=== PATIENT | female | born 1985 | race African-American/Black ===

== ENCOUNTER 2016-05-09 23:37 | Emergency (ER) | payer MEDICARE ==
[~2016-05-09 23:37] MED LIST: CEPH500T PO; ETOD200C31 PO; HYDR5TAB59 PO; METH75TA PO; TYLE325C PO
[2016-05-10] MEDS ORDERED: HYDROCORTISONE INJ 250 MG VIAL (J1720) As Ordered ONE (00:08)
[2016-05-10 00:11] LABS: BASO % 0.4 % (0.0-1.0); EOS # 0.4 K/mm3 (0.0-0.50); EOS % 4.4 % (0.0-3.0); LARGE UNSTAINED CELL # 0.1 K/mm3 (0.0-0.4); LARGE UNSTAINED CELL % 1.4 % (0.0-4.0); LYMPH # 0.9 K/mm3 (1.5-4.5); LYMPH % 9.7 % (24.0-44.0); MEAN CORPUSCULAR HGB CONC 34.9 g/dl (32.0-36.5); MEAN CORPUSCULAR VOLUME 88.9 fl (80.0-96.0); MONO # 0.4 K/mm3 (0.0-0.8); MONO % 4.3 % (0.0-5.0); NEUTROPHILS # 7.4 K/mm3 (1.8-7.7); NEUTROPHILS % 79.8 % (36.0-66.0); PLATELET COUNT, AUTOMATED 274 k/mm3 (150-450); RED CELL DISTRIBUTION WIDTH 12.9 % (11.5-14.5); WHITE BLOOD COUNT 9.2 K/mm3 (4.0-10.0)
[2016-05-10 00:45] LABS: ALBUMIN 4.1 GM/DL (3.2-5.2); ALBUMIN/GLOBULIN RATIO 0.91 (1.00-1.93); ALKALINE PHOSPHATASE 120 U/L (45-117); ALT/SGPT 19 U/L (12-78); AMYLASE 61 U/L (25-115); ANION GAP 11 MEQ/L (8-16); AST/SGOT 22 U/L (15-37); BILIRUBIN,DIRECT 0.3 MG/DL (0.0-0.2); BILIRUBIN,TOTAL 1.4 MG/DL (0.2-1.0); BLOOD UREA NITROGEN 10 MG/DL (7-18); CALCIUM LEVEL 8.8 MG/DL (8.5-10.1); CARBON DIOXIDE LEVEL 23 MEQ/L (21-32); CHLORIDE LEVEL 104 MEQ/L (98-107); CREATININE FOR GFR 1.19 MG/DL (0.55-1.02); GLOMERULAR FILTRATION RATE > 60.0 (>60); GLUCOSE, FASTING 94 MG/DL (70-105); SODIUM LEVEL 138 MEQ/L (136-145); TOTAL PROTEIN 8.6 GM/DL (6.4-8.2)
--- NOTE | 2016-05-10 01:40 | REPUSA ---
CLINICAL HISTORY: Abdominal pain. TECHNIQUE: Realtime sonographic images were obtained in multiple projections. COMMENTS: The liver is of normal size, parenchyma demonstrates normal echogenicity. No discrete hepatic mass is seen. There is no intra or extrahepatic biliary ductal dilatation. CBD measures 2.7mm. The gallbladder is physiologically distended without evidence of calculi. The gallbladder wall is not thickened and there is no pericholecystic fluid. There is no abdominal as cites. The right kidney measures 10.2 x 6.1 x 4.7 cm, free of hydronephrosis. IMPRESSION: Unremarkable study. Thank you for your kind referral of this patient.
[2016-05-10] MEDS ORDERED: METOCLOPRAMIDE INJ 10MG/2ML VIAL (J2765) As Ordered ONE (03:30)
--- NOTE | 2016-05-10 03:59 | EDDOCDS ---
Physician Documentation [facility] Name: Rakel Edwards Age: 30 yrs Sex: Female : 1985 Arrival Date: 05/09/2016 Time: 23:37 Bed 11 Private MD: Fátima Deshpande Disposition: 05/10/16 03:22 Discharged to Home/Self Care. Impression: Noninfective gastroenteritis and colitis, unspecified. - Condition is Stable. - Prescriptions for Reglan 10 mg Oral Tablet - take 1 tablet by ORAL route every 6 hours take 30 minutes before meals and at bedtime; 20 tablet. - Medication Reconciliation, Local Pharmacy Hours form. - Follow up: Fátima Deshpande; When: 1 - 2 days; Reason: Recheck today's complaints. - Problem is new. - Symptoms have improved. Historical: - Allergies: Percocet; - Home Meds: 1. hydrocortisone 15mg Oral tab 2 times per day - PMHx: Asthma; Congenital adrenal hyperplasia; mild cerebral palsy; NA+ deficiency; Seasonal Allergies; - PSHx: vagioplasty; heel cord lengthening; Left foot reconstruction; - Social history: Smoking status: Patient states was never smoker of tobacco. No barriers to communication noted, The patient speaks fluent Belarusian, Speaks appropriately for age. - Family history: Not pertinent. - : The pt / caregiver states he / she is not on anticoagulants. Home medication list is obtained from the patient. - Exposure Risk Screening:: None identified. 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 8 in. (172.72 cm); Pain 8/10; 05/10 03:33 BP 120 / 57; Pulse 93; Resp 20; Temp 98.3(O); Pulse Ox 98% on R/A; Pain 0/10; jmv 03:57 BP 118 / 60; Pulse 103; Resp 18; Pulse Ox 97% ; Pain 0/10; slm 05/09 23:38 Body Mass Index 28.13 (83.91 kg, 172.72 cm) jl MDM: 05/09 23:58 IV Saline Lock ordered. cs11 23:58 NS 0.9% 1000 ml IV at bolus once ordered. cs11 05/10 00:00 CBC with Diff Ordered. EDMS 00:00 MED Profile Ordered. EDMS 00:00 Liver Profile Ordered. EDMS 00:00 Amylase Ordered. EDMS 00:00 Lipase Ordered. EDMS 00:00 Urinalysis Ordered. EDMS 00:00 Urine Culture Ordered. EDMS 00:02 Hydrocortisone (PF) 250 mg IVP once ordered. cs11 00:26 NS 0.9% 1000 ml IV at bolus once ordered. cs11 00:41 CBC with Diff Reviewed. cs11 00:57 MED Profile Reviewed. cs11 00:57 Liver Profile Reviewed. cs11 00:57 Amylase Reviewed. cs11 00:57 Lipase Reviewed. cs11 01:00 Ultrasound Abd Limited Ordered. EDMS 02:01 Financial registration complete. hs2 02:49 [facility] Payment Agreement was scanned into TDX and attached to record. hs2 03:19 Metoclopramide 10 mg IV at 40 mg/hr once over 15 mins ordered. cs11 03:19 Ultrasound Abd Limited Reviewed. cs11 Administered Medications: 00:02 CANCELLED (Other Intervention Used): Dexamethasone 12 mg IV at bolus once cs11 00:12 Drug: Hydrocortisone (PF) 250 mg [hydrocortisone sod succinate (PF) 250 mg/2 mL jmb solution for injection (2 mL)] Route: IVP; Site: left antecubital; 00:13 Drug: NS 0.9% 1000 ml [sodium chloride 0.9 % intravenous solution] Route: IV; Rate: jmb bolus; Site: left antecubital; 01:34 Drug: NS 0.9% 1000 ml [sodium chloride 0.9 % intravenous solution] Route: IV; Rate: jmb bolus; Site: left antecubital; 03:33 Drug: Metoclopramide 10 mg [metoclopramide 5 mg/mL injection solution] {Note: given tm5 IVPB in 50cc NS over 15 minutes.} Route: IV; Rate: 40 mg/hr; Infused Over: 15 mins; Site: left antecubital; 03:55 Follow up: IV Status: Completed infusion sls1 Signatures: Dispatcher [employer] EDSD Rissa Abreu RN RN jo3 Schiff, Craig, DO DO cs11 Bo,Saji,RN RN Mery Velez LPN [employer] slm Leidy Mcdowell, Reg Reg hs2 Sulma Jessica RN sls1 Katelin Bishop RN tm5 The chart was reviewed and I authenticate all verbal orders and agree with the evaluation and treatment provided.Corrections: (The following items were deleted from the chart) 05/09 23:52 23:50 Allergies: No known drug Allergies; jo3 jo3 05/10 00:02 05/09 23:58 Dexamethasone 12 mg IV at bolus once ordered. cs11 cs11 Attachments: 05/10 02:49 [facility] [place] Payment Agreement hs2 MTDD
--- NOTE | 2016-05-10 03:59 | EDDOCDS ---
Nurse's Notes [facility] Name: Rakel Edwards Age: 30 yrs Sex: Female : 1985 Arrival Date: 05/09/2016 Time: 23:37 Bed 11 Private MD: Fátima Deshpande Diagnosis: Noninfective gastroenteritis and colitis, unspecified Presentation: 05/09 23:46 Presenting complaint: Patient states: Vomiting since 1700. No diarrhea. reports that jo3 the two children she baby sits have been sick with stomach bug. Pt reports a sodium deficiency and states she needs Dexamethasone IV when she is vomiting. Adult Sepsis Screening: The patient does not have new or worsening altered mentation. Patient's respiratory rate is less than 22. Systolic blood pressure is greater than 100. Patient has a qSOFA score of 0- Negative Sepsis Screen. Suicide/Homicide risk assessment- the patient denies having any suicidal and/or homicidal ideations and does not present with any other emotional, behavioral or mental health complaints. Status: Patient is not a swimming pool service technician or dependent. Transition of care: patient was not received from another setting of care. 23:46 Acuity: NABIL Level 3 jo3 23:46 Method Of Arrival: Walkin/Carried/Asstd jo3 Triage Assessment: 23:50 General: Appears in no apparent distress, Behavior is appropriate for age, cooperative. jo3 HIV screening NA for this visit Offered previously. Neurological: Level of Consciousness is awake, alert, Oriented to person, place, time. Respiratory: Airway is patent Respiratory effort is even, unlabored. Derm: Skin is pink, warm & dry. 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 hydrocortisone 15mg Oral tab 2 times per day - PMHx: Asthma; Congenital adrenal hyperplasia; mild cerebral palsy; NA+ deficiency; Seasonal Allergies; - PSHx: vagioplasty; heel cord lengthening; Left foot reconstruction; - Social history: Smoking status: Patient states was never smoker of tobacco. No barriers to communication noted, The patient speaks fluent Khmer, Speaks appropriately for age. - Family history: Not pertinent. - : The pt / caregiver states he / she is not on anticoagulants. Home medication list is obtained from the patient. - Exposure Risk Screening:: None identified. Screenin/25 00:04 Screening information is obtained from the patient. Fall risk: No risks identified. jmb Assistance ADL's: requires no assistance with activities of daily living. Abuse/DV Screen: The patient / caregiver reports he/she is: not in a situation that causes fear, pain or injury. Nutritional screening: No deficits noted. home support is adequate. 03:00 Advance Directives: There is no active DNR order. tm5 Assessment: 00:04 General: Appears in no apparent distress, Behavior is appropriate for age, cooperative. jmb Pain: Location: lumbar area, left low back and right low back Pain currently is 2 out of 10 on a pain scale. Neurological: Level of Consciousness is awake, alert, obeys commands, Oriented to person, place, time, Fuel Distribution System Operator are equal bilaterally Speech is normal, Facial symmetry appears normal, Facial symmetry: tongue is midline. Cardiovascular: Capillary refill < 3 seconds Heart tones S1 S2 present Pulses are all present. Rhythm is regular. Respiratory: Airway is patent Respiratory effort is even, unlabored, Respiratory pattern is regular, symmetrical, Breath sounds are clear bilaterally. GI: Abdomen is non- distended Bowel sounds present X 4 quads. Abd is soft X 4 quads. Derm: Skin is normal. Musculoskeletal: Range of motion intact in all extremities. 00:43 General: Appears in no apparent distress, comfortable, Behavior is appropriate for age, jmb cooperative, Patient laying on stretcher, appears comfortable. Patient voices no complaints at this time . Neurological: Level of Consciousness is awake, alert, obeys commands, Oriented to person, place, time. Respiratory: Airway is patent Respiratory effort is even, unlabored, Respiratory pattern is regular, symmetrical. 01:35 General: Appears in no apparent distress, comfortable, Behavior is appropriate for age, jmb cooperative, Patient laying on stretcher with lights off. Patient denies discomfort at this time. . Neurological: Level of Consciousness is awake, alert, obeys commands, Oriented to person, place, time. Respiratory: Airway is patent Respiratory effort is even, unlabored, Respiratory pattern is regular, symmetrical. 02:16 General: Appears in no apparent distress, comfortable, Behavior is appropriate for age, jmb cooperative, Patient laying on stretcher, appears comfortable. NO voiced complaints at this time. . Neurological: Level of Consciousness is awake, alert, obeys commands, Oriented to person, place, time. Respiratory: Airway is patent Respiratory effort is even, unlabored, Respiratory pattern is regular, symmetrical. 02:51 General: Appears in no apparent distress, comfortable, Behavior is appropriate for age, jmb cooperative, Patient laying in bed, no voiced complaints at this time. . Neurological: Level of Consciousness is awake, alert, obeys commands, Oriented to person, place, time. Respiratory: Airway is patent Respiratory effort is even, unlabored, Respiratory pattern is regular, symmetrical. 03:57 Reassessment: Patient appears in no apparent distress at this time. [facility] Vital Signs: 05/09 23:38 BP 127 / 63; Pulse 117; Resp 18; Temp 98.3; Pulse Ox 99% ; Weight 83.91 kg; Height 5 [facility] ft. 8 in. (172.72 cm); Pain 8/10; 05/10 03:33 BP 120 / 57; Pulse 93; Resp 20; Temp 98.3(O); Pulse Ox 98% on R/A; Pain 0/10; [facility] 03:57 BP 118 / 60; Pulse 103; Resp 18; Pulse Ox 97% ; Pain 0/10; [facility] 05/09 23:38 Body Mass Index 28.13 (83.91 kg, 172.72 cm) [facility] Vitals: 05/09 23:38 Log In Time: May 09, 2016 at 23:38. [facility] ED Course: 23:38 Patient visited by Belgica Harman, Carpenter Helper. [facility] 23:38 Fátima Deshpande is Private Physician. [facility] 23:38 Patient moved to Waiting jl 23:39 Patient moved to Pre RCE jl 23:49 Triage Initiated jo3 23:52 Patient moved to 11 jo3 23:56 Mauro Cristina DO is Attending Physician. cs11 23:56 Patient visited by Mauro Cristina DO. [facility] 05/10 00:04 The patient / caregiver is instructed regarding the plan of care and ED course. natacha 00:04 Lipase Sent. joeyb 00:04 Amylase Sent. joeyb 00:04 Liver Profile Sent. joeyb 00:04 MED Profile Sent. natacha 00:04 CBC with Diff Sent. natacha 00:04 Inserted saline lock: 20 gauge in left antecubital area and blood collected. The [facility] patient tolerated the procedure well. Labs drawn. (by ED staff). Sent per order to lab. 00:06 Patient visited by Saji Bo RN. jmb 00:43 Patient visited by Saji Bo RN. jmb 01:36 Patient visited by Saji Bo RN. jmb 01:57 Ultrasound Abd Limited Returned. EDMS 02:17 Patient visited by Saji Bo RN. jmb 02:49 [facility] Payment Agreement was scanned into [employer] and attached to record. hs2 02:52 Patient visited by Saji Bo RN. jmb 03:01 Report received from Connor Valadez RN, assumed care of pt at this time. tm5 03:22 Fátima Deshpande is Referral Physician. cs11 03:34 Patient visited by Ravi Keys PCA. jmv 03:55 Patient visited by Sulma Jessica RN. sls1 03:55 Discontinued lock intact, bleeding controlled, pressure dressing applied, No sls1 redness/swelling at site. No procedures done that require assistance. 03:58 Patient visited by Mery Churchill LPN. slm Administered Medications: 00:02 CANCELLED (Other Intervention Used): Dexamethasone 12 mg IV at bolus once cs11 00:12 Drug: Hydrocortisone (PF) 250 mg [hydrocortisone sod succinate (PF) 250 mg/2 mL jmb solution for injection (2 mL)] Route: IVP; Site: left antecubital; 00:13 Drug: NS 0.9% 1000 ml [sodium chloride 0.9 % intravenous solution] Route: IV; Rate: jmb bolus; Site: left antecubital; 01:34 Drug: NS 0.9% 1000 ml [sodium chloride 0.9 % intravenous solution] Route: IV; Rate: jmb bolus; Site: left antecubital; 03:33 Drug: Metoclopramide 10 mg [metoclopramide 5 mg/mL injection solution] {Note: given tm5 IVPB in 50cc NS over 15 minutes.} Route: IV; Rate: 40 mg/hr; Infused Over: 15 mins; Site: left antecubital; 03:55 Follow up: IV Status: Completed infusion sls1 Order Results: Lab Order: CBC with Diff; SPEC'M 05/10/16 00:02 Test: WHITE BLOOD COUNT; Value: 9.2; Range: 4.0-10.0; Units: K/mm3; Status: F Test: RED BLOOD COUNT; Value: 6.03; Range: 4.00-5.40; Abnormal: Above high normal; Units: M/mm3; Status: F Test: HEMOGLOBIN; Value: 18.7; Range: 12.0-16.0; Abnormal: Above high normal; Units: g/dl; Status: F Test: HEMATOCRIT; Value: 53.6; Range: 36.0-47.0; Abnormal: Above high normal; Units: %; Status: F Test: MEAN CORPUSCULAR VOLUME; Value: 88.9; Range: 80.0-96.0; Units: fl; Status: F Test: MEAN CORPUSCULAR HEMOGLOBIN; Value: 31.0; Range: 27.0-33.0; Units: pg; Status: F Test: MEAN CORPUSCULAR HGB CONC; Value: 34.9; Range: 32.0-36.5; Units: g/dl; Status: F Test: RED CELL DISTRIBUTION WIDTH; Value: 12.9; Range: 11.5-14.5; Units: %; Status: F Test: PLATELET COUNT, AUTOMATED; Value: 274; Range: 150-450; Units: k/mm3; Status: F Test: NEUTROPHILS %; Value: 79.8; Range: 36.0-66.0; Abnormal: Above high normal; Units: %; Status: F Test: LYMPH %; Value: 9.7; Range: 24.0-44.0; Abnormal: Below low normal; Units: %; Status: F Test: MONO %; Value: 4.3; Range: 0.0-5.0; Units: %; Status: F Test: EOS %; Value: 4.4; Range: 0.0-3.0; Abnormal: Above high normal; Units: %; Status: F Test: BASO %; Value: 0.4; Range: 0.0-1.0; Units: %; Status: F Test: LARGE UNSTAINED CELL %; Value: 1.4; Range: 0.0-4.0; Units: %; Status: F Test: NEUTROPHILS #; Value: 7.4; Range: 1.8-7.7; Units: K/mm3; Status: F Test: LYMPH #; Value: 0.9; Range: 1.5-4.5; Abnormal: Below low normal; Units: K/mm3; Status: F Test: MONO #; Value: 0.4; Range: 0.0-0.8; Units: K/mm3; Status: F Test: EOS #; Value: 0.4; Range: 0.0-0.50; Units: K/mm3; Status: F Test: BASO #; Value: 0.0; Range: 0.0-0.2; Units: K/mm3; Status: F Test: LARGE UNSTAINED CELL #; Value: 0.1; Range: 0.0-0.4; Units: K/mm3; Status: F Lab Order: MED Profile; SPECM 05/10/16 00:02 Test: GLUCOSE, FASTING; Value: 94; Range: 70-105; Units: MG/DL; Status: F Test: BLOOD UREA NITROGEN; Value: 10; Range: 7-18; Units: MG/DL; Status: F Test: CREATININE FOR GFR; Value: 1.19; Range: 0.55-1.02; Abnormal: Above high normal; Units: MG/DL; Status: F Test: GLOMERULAR FILTRATION RATE; Value: > 60.0; Range: >60; Status: F Test: SODIUM LEVEL; Value: 138; Range: 136-145; Units: MEQ/L; Status: F Test: POTASSIUM SERUM; Value: 4.0; Range: 3.5-5.1; Units: MEQ/L; Status: F Test: CHLORIDE LEVEL; Value: 104; Range: 98-107; Units: MEQ/L; Status: F Test: CARBON DIOXIDE LEVEL; Value: 23; Range: 21-32; Units: MEQ/L; Status: F Test: ANION GAP; Value: 11; Range: 8-16; Units: MEQ/L; Status: F Test: CALCIUM LEVEL; Value: 8.8; Range: 8.5-10.1; Units: MG/DL; Status: F Test Note: ; Units are mL/min/1.73 m2 Chronic Kidney Disease Staging per NKF: Stage I & II GFR >=60 Normal to Mildly Decreased Stage III GFR 30-59 Moderately Decreased Stage IV GFR 15-29 Severely Decreased Stage V GFR <15 Very Little GFR Left ESRD GFR <15 on CHAR FILTER OPERATOR HELPER Lab Order: Liver Profile; [facility] 05/10/16 00:02 Test: AST/SGOT; Value: 22; Range: 15-37; Units: U/L; Status: F Test: ALT/SGPT; Value: 19; Range: 12-78; Units: U/L; Status: F Test: ALKALINE PHOSPHATASE; Value: 120; Range: 45-117; Abnormal: Above high normal; Units: U/L; Status: F Test: BILIRUBIN,TOTAL; Value: 1.4; Range: 0.2-1.0; Abnormal: Above high normal; Units: MG/DL; Status: F Test: BILIRUBIN,DIRECT; Value: 0.3; Range: 0.0-0.2; Abnormal: Above high normal; Units: MG/DL; Status: F Test: TOTAL PROTEIN; Value: 8.6; Range: 6.4-8.2; Abnormal: Above high normal; Units: GM/DL; Status: F Test: ALBUMIN; Value: 4.1; Range: 3.2-5.2; Units: GM/DL; Status: F Test: ALBUMIN/GLOBULIN RATIO; Value: 0.91; Range: 1.00-1.93; Abnormal: Below low normal; Status: F Lab Order: Amylase; [facility] 05/10/16 00:02 Test: AMYLASE; Value: 61; Range: 25-115; Units: U/L; Status: F Lab Order: Lipase; [facility] 05/10/16 00:02 Test: LIPASE; Value: 105; Range: 73-393; Units: U/L; Status: F Lab Order: Urinalysis; [facility] 05/10/16 00:02 Test: APPEARANCE, URINE; Value: CLEAR; Range: CLEAR; Status: F Test: COLOR, URINE; Value: YELLOW; Range: YELLOW; Status: F Test: PH,URINE; Value: 7.0; Range: 5.0-9.0; Units: UNITS; Status: F Test: SPECIFIC GRAVITY URINE AUTO; Value: 1.011; Range: 1.002-1.035; Status: F Test: PROTEIN, URINE AUTO; Value: NEGATIVE; Range: NEGATIVE; Units: mg/dL; Status: F Test: GLUCOSE, URINE (UA) AUTO; Value: NEGATIVE; Range: NEGATIVE; Units: mg/dL; Status: F Test: KETONE, URINE AUTO; Value: TRACE; Range: NEGATIVE; Abnormal: Above high normal; Units: mg/dL; Status: F Test: UROBILINOGEN, URINE AUTO; Value: 0.2; Range: 0.0-2.0; Units: mg/dL; Status: F Test: BILIRUBIN, URINE AUTO; Value: NEGATIVE; Range: NEGATIVE; Status: F Test: NITRITE, URINE AUTO; Value: NEGATIVE; Range: NEGATIVE; Status: F Test: LEUKOCYTE ESTERASE, URINE AUTO; Value: TRACE; Range: NEGATIVE; Abnormal: Above high normal; Status: F Test: BLOOD, URINE BLOOD; Value: NEGATIVE; Range: NEGATIVE; Status: F Test: WBC, URINE AUTO; Value: 1; Range: 0-3; Units: /HPF; Status: F Test: RBC, URINE AUTO; Value: 2; Range: 0-3; Units: /HPF; Status: F Test: BACTERIA, URINE AUTO; Value: NEGATIVE; Range: NEGATIVE; Status: F Test: SQUAMOUS EPITHELIAL CELL UR AU; Value: 0; Range: 0-6; Units: /HPF; Status: F Test: MUCUS, URINE; Value: SMALL; Range: NEGATIVE; Status: F Test: HYALINE CAST, URINE AUTO; Value: 0; Range: 0-1; Units: /LPF; Status: F Radiology Order: Ultrasound Abd Limited Test: Ultrasound Abd Limited REASON FOR EXAMINATION: Biliary Colic; ; CLINICAL HISTORY: Abdominal pain.; TECHNIQUE: Realtime sonographic images were obtained in multiple projections.; COMMENTS:; The liver is of normal size, parenchyma demonstrates normal echogenicity. No discrete hepatic mass is; seen.; There is no intra or extrahepatic biliary ductal dilatation.; CBD measures 2.7mm.; The gallbladder is physiologically distended without evidence of calculi.; The gallbladder wall is not thickened and there is no pericholecystic fluid. There is no abdominal as; cites.; The right kidney measures 10.2 x 6.1 x 4.7 cm, free of hydronephrosis.; IMPRESSION:; Unremarkable study.; Thank you for your kind referral of this patient.; ; Outcome: 03:22 Discharge ordered by Provider. cs11 03:58 Discharge Assessment: Patient awake, alert and oriented x 3. No cognitive and/or slm functional deficits noted. Patient verbalized understanding of disposition instructions. patient administered narcotics - no. The following High Risk Discharge criteria are identified: None. Discharged to home ambulatory. Condition: good Condition: improved. Discharge instructions given to patient, Instructed on discharge instructions, follow up and referral plans. medication usage, Demonstrated understanding of instructions, medications, Pt was receptive of discharge instructions/ teaching. Prescriptions given X 1. Ultrasound Study completed. Property :Personal belongings accompany Pt. 03:59 Patient left the ED. slm Signatures: Dispatcher [employer] EDMS Rissa Abreu,RN RN Sulma Ludwig RN RN sls1 Mauro Cristina, DO cs11 Saji Bo,RN RN jmb Mery Churchill,INTEGRATION TECHNICIAN INTEGRATION TECHNICIAN slm Belgica Harman, Carpenter Helper Unit jlm Leidy Mcdowell, Reg Reg hs2 Ravi Keys, BAR SUPERVISOR BAR SUPERVISOR Katelin Hyatt,RN RN tm5 Corrections: (The following items were deleted from the chart) 05/09 23:52 23:50 Allergies: No known drug Allergies; moise [email or web address] MTDD
--- NOTE | 2016-05-12 04:59 | EDDOCDS ---
Nurse's Notes [facility] Name: Rakel Edwards Age: 30 yrs Sex: Female : 1985 Arrival Date: 05/09/2016 Time: 23:37 Bed 11 Private MD: Fátima Deshpande Diagnosis: Noninfective gastroenteritis and colitis, unspecified Presentation: 05/09 23:46 Presenting complaint: Patient states: Vomiting since 1700. No diarrhea. reports that jo3 the two children she baby sits have been sick with stomach bug. Pt reports a sodium deficiency and states she needs Dexamethasone IV when she is vomiting. Adult Sepsis Screening: The patient does not have new or worsening altered mentation. Patient's respiratory rate is less than 22. Systolic blood pressure is greater than 100. Patient has a qSOFA score of 0- Negative Sepsis Screen. Suicide/Homicide risk assessment- the patient denies having any suicidal and/or homicidal ideations and does not present with any other emotional, behavioral or mental health complaints. Status: Patient is not a vehicle service agent or dependent. Transition of care: patient was not received from another setting of care. 23:46 Acuity: NABIL Level 3 jo3 23:46 Method Of Arrival: Walkin/Carried/Asstd jo3 Triage Assessment: 23:50 General: Appears in no apparent distress, Behavior is appropriate for age, cooperative. jo3 HIV screening NA for this visit Offered previously. Neurological: Level of Consciousness is awake, alert, Oriented to person, place, time. Respiratory: Airway is patent Respiratory effort is even, unlabored. Derm: Skin is pink, warm & dry. 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 hydrocortisone 15mg Oral tab 2 times per day - PMHx: Asthma; Congenital adrenal hyperplasia; mild cerebral palsy; NA+ deficiency; Seasonal Allergies; - PSHx: vagioplasty; heel cord lengthening; Left foot reconstruction; - Social history: Smoking status: Patient states was never smoker of tobacco. No barriers to communication noted, The patient speaks fluent Slovenian, Speaks appropriately for age. - Family history: Not pertinent. - : The pt / caregiver states he / she is not on anticoagulants. Home medication list is obtained from the patient. - Exposure Risk Screening:: None identified. Screenin/25 00:04 Screening information is obtained from the patient. Fall risk: No risks identified. jmb Assistance ADL's: requires no assistance with activities of daily living. Abuse/DV Screen: The patient / caregiver reports he/she is: not in a situation that causes fear, pain or injury. Nutritional screening: No deficits noted. home support is adequate. 03:00 Advance Directives: There is no active DNR order. tm5 Assessment: 00:04 General: Appears in no apparent distress, Behavior is appropriate for age, cooperative. jmb Pain: Location: lumbar area, left low back and right low back Pain currently is 2 out of 10 on a pain scale. Neurological: Level of Consciousness is awake, alert, obeys commands, Oriented to person, place, time, Blacktop Spreader are equal bilaterally Speech is normal, Facial symmetry appears normal, Facial symmetry: tongue is midline. Cardiovascular: Capillary refill < 3 seconds Heart tones S1 S2 present Pulses are all present. Rhythm is regular. Respiratory: Airway is patent Respiratory effort is even, unlabored, Respiratory pattern is regular, symmetrical, Breath sounds are clear bilaterally. GI: Abdomen is non- distended Bowel sounds present X 4 quads. Abd is soft X 4 quads. Derm: Skin is normal. Musculoskeletal: Range of motion intact in all extremities. 00:43 General: Appears in no apparent distress, comfortable, Behavior is appropriate for age, jmb cooperative, Patient laying on stretcher, appears comfortable. Patient voices no complaints at this time . Neurological: Level of Consciousness is awake, alert, obeys commands, Oriented to person, place, time. Respiratory: Airway is patent Respiratory effort is even, unlabored, Respiratory pattern is regular, symmetrical. 01:35 General: Appears in no apparent distress, comfortable, Behavior is appropriate for age, jmb cooperative, Patient laying on stretcher with lights off. Patient denies discomfort at this time. . Neurological: Level of Consciousness is awake, alert, obeys commands, Oriented to person, place, time. Respiratory: Airway is patent Respiratory effort is even, unlabored, Respiratory pattern is regular, symmetrical. 02:16 General: Appears in no apparent distress, comfortable, Behavior is appropriate for age, jmb cooperative, Patient laying on stretcher, appears comfortable. NO voiced complaints at this time. . Neurological: Level of Consciousness is awake, alert, obeys commands, Oriented to person, place, time. Respiratory: Airway is patent Respiratory effort is even, unlabored, Respiratory pattern is regular, symmetrical. 02:51 General: Appears in no apparent distress, comfortable, Behavior is appropriate for age, jmb cooperative, Patient laying in bed, no voiced complaints at this time. . Neurological: Level of Consciousness is awake, alert, obeys commands, Oriented to person, place, time. Respiratory: Airway is patent Respiratory effort is even, unlabored, Respiratory pattern is regular, symmetrical. 03:57 Reassessment: Patient appears in no apparent distress at this time. [facility] Vital Signs: 05/09 23:38 BP 127 / 63; Pulse 117; Resp 18; Temp 98.3; Pulse Ox 99% ; Weight 83.91 kg; Height 5 [facility] ft. 8 in. (172.72 cm); Pain 8/10; 05/10 03:33 BP 120 / 57; Pulse 93; Resp 20; Temp 98.3(O); Pulse Ox 98% on R/A; Pain 0/10; [facility] 03:57 BP 118 / 60; Pulse 103; Resp 18; Pulse Ox 97% ; Pain 0/10; [facility] 05/09 23:38 Body Mass Index 28.13 (83.91 kg, 172.72 cm) [facility] Vitals: 05/09 23:38 Log In Time: May 09, 2016 at 23:38. [facility] ED Course: 23:38 Patient visited by Belgica Harman, Consolidation Accountant. [facility] 23:38 Fátima Deshpande is Private Physician. [facility] 23:38 Patient moved to Waiting jl 23:39 Patient moved to Pre RCE jl 23:49 Triage Initiated jo3 23:52 Patient moved to 11 jo3 23:56 Mauro Cristina DO is Attending Physician. cs11 23:56 Patient visited by Mauro Cristina DO. [facility] 05/10 00:04 The patient / caregiver is instructed regarding the plan of care and ED course. natacha 00:04 Lipase Sent. joeyb 00:04 Amylase Sent. joeyb 00:04 Liver Profile Sent. joeyb 00:04 MED Profile Sent. natacha 00:04 CBC with Diff Sent. natacha 00:04 Inserted saline lock: 20 gauge in left antecubital area and blood collected. The [facility] patient tolerated the procedure well. Labs drawn. (by ED staff). Sent per order to lab. 00:06 Patient visited by Saji Bo RN. jmb 00:43 Patient visited by Saji Bo RN. jmb 01:36 Patient visited by Saji Bo RN. jmb 01:57 Ultrasound Abd Limited Returned. EDMS 02:17 Patient visited by Saji Bo RN. jmb 02:49 [facility] Payment Agreement was scanned into [employer] and attached to record. hs2 02:52 Patient visited by Saji Bo RN. jmb 03:01 Report received from Connor Valadez RN, assumed care of pt at this time. tm5 03:22 Fátima Deshpande is Referral Physician. cs11 03:34 Patient visited by Ravi Keys PCA. jmv 03:55 Patient visited by Sulma Jessica RN. sls1 03:55 Discontinued lock intact, bleeding controlled, pressure dressing applied, No sls1 redness/swelling at site. No procedures done that require assistance. 03:58 Patient visited by Mery Churchill LPN. slm 08:28 T-Sheet-- Draft Copy was scanned into [employer] and attached to record. seh Administered Medications: 00:02 CANCELLED (Other Intervention Used): Dexamethasone 12 mg IV at bolus once cs11 00:12 Drug: Hydrocortisone (PF) 250 mg [hydrocortisone sod succinate (PF) 250 mg/2 mL jmb solution for injection (2 mL)] Route: IVP; Site: left antecubital; 00:13 Drug: NS 0.9% 1000 ml [sodium chloride 0.9 % intravenous solution] Route: IV; Rate: jmb bolus; Site: left antecubital; 01:34 Drug: NS 0.9% 1000 ml [sodium chloride 0.9 % intravenous solution] Route: IV; Rate: jmb bolus; Site: left antecubital; 03:33 Drug: Metoclopramide 10 mg [metoclopramide 5 mg/mL injection solution] {Note: given tm5 IVPB in 50cc NS over 15 minutes.} Route: IV; Rate: 40 mg/hr; Infused Over: 15 mins; Site: left antecubital; 03:55 Follow up: IV Status: Completed infusion sls1 Order Results: Lab Order: CBC with Diff; SPEC'M 05/10/16 00:02 Test: WHITE BLOOD COUNT; Value: 9.2; Range: 4.0-10.0; Units: K/mm3; Status: F Test: RED BLOOD COUNT; Value: 6.03; Range: 4.00-5.40; Abnormal: Above high normal; Units: M/mm3; Status: F Test: HEMOGLOBIN; Value: 18.7; Range: 12.0-16.0; Abnormal: Above high normal; Units: g/dl; Status: F Test: HEMATOCRIT; Value: 53.6; Range: 36.0-47.0; Abnormal: Above high normal; Units: %; Status: F Test: MEAN CORPUSCULAR VOLUME; Value: 88.9; Range: 80.0-96.0; Units: fl; Status: F Test: MEAN CORPUSCULAR HEMOGLOBIN; Value: 31.0; Range: 27.0-33.0; Units: pg; Status: F Test: MEAN CORPUSCULAR HGB CONC; Value: 34.9; Range: 32.0-36.5; Units: g/dl; Status: F Test: RED CELL DISTRIBUTION WIDTH; Value: 12.9; Range: 11.5-14.5; Units: %; Status: F Test: PLATELET COUNT, AUTOMATED; Value: 274; Range: 150-450; Units: k/mm3; Status: F Test: NEUTROPHILS %; Value: 79.8; Range: 36.0-66.0; Abnormal: Above high normal; Units: %; Status: F Test: LYMPH %; Value: 9.7; Range: 24.0-44.0; Abnormal: Below low normal; Units: %; Status: F Test: MONO %; Value: 4.3; Range: 0.0-5.0; Units: %; Status: F Test: EOS %; Value: 4.4; Range: 0.0-3.0; Abnormal: Above high normal; Units: %; Status: F Test: BASO %; Value: 0.4; Range: 0.0-1.0; Units: %; Status: F Test: LARGE UNSTAINED CELL %; Value: 1.4; Range: 0.0-4.0; Units: %; Status: F Test: NEUTROPHILS #; Value: 7.4; Range: 1.8-7.7; Units: K/mm3; Status: F Test: LYMPH #; Value: 0.9; Range: 1.5-4.5; Abnormal: Below low normal; Units: K/mm3; Status: F Test: MONO #; Value: 0.4; Range: 0.0-0.8; Units: K/mm3; Status: F Test: EOS #; Value: 0.4; Range: 0.0-0.50; Units: K/mm3; Status: F Test: BASO #; Value: 0.0; Range: 0.0-0.2; Units: K/mm3; Status: F Test: LARGE UNSTAINED CELL #; Value: 0.1; Range: 0.0-0.4; Units: K/mm3; Status: F Lab Order: MED Profile; SPEC'M 05/10/16 00:02 Test: GLUCOSE, FASTING; Value: 94; Range: 70-105; Units: MG/DL; Status: F Test: BLOOD UREA NITROGEN; Value: 10; Range: 7-18; Units: MG/DL; Status: F Test: CREATININE FOR GFR; Value: 1.19; Range: 0.55-1.02; Abnormal: Above high normal; Units: MG/DL; Status: F Test: GLOMERULAR FILTRATION RATE; Value: > 60.0; Range: >60; Status: F Test: SODIUM LEVEL; Value: 138; Range: 136-145; Units: MEQ/L; Status: F Test: POTASSIUM SERUM; Value: 4.0; Range: 3.5-5.1; Units: MEQ/L; Status: F Test: CHLORIDE LEVEL; Value: 104; Range: 98-107; Units: MEQ/L; Status: F Test: CARBON DIOXIDE LEVEL; Value: 23; Range: 21-32; Units: MEQ/L; Status: F Test: ANION GAP; Value: 11; Range: 8-16; Units: MEQ/L; Status: F Test: CALCIUM LEVEL; Value: 8.8; Range: 8.5-10.1; Units: MG/DL; Status: F Test Note: ; Units are mL/min/1.73 m2 Chronic Kidney Disease Staging per NKF: Stage I & II GFR >=60 Normal to Mildly Decreased Stage III GFR 30-59 Moderately Decreased Stage IV GFR 15-29 Severely Decreased Stage V GFR <15 Very Little GFR Left ESRD GFR <15 on VETERINARY BACTERIOLOGIST Lab Order: Liver Profile; [facility] 05/10/16 00:02 Test: AST/SGOT; Value: 22; Range: 15-37; Units: U/L; Status: F Test: ALT/SGPT; Value: 19; Range: 12-78; Units: U/L; Status: F Test: ALKALINE PHOSPHATASE; Value: 120; Range: 45-117; Abnormal: Above high normal; Units: U/L; Status: F Test: BILIRUBIN,TOTAL; Value: 1.4; Range: 0.2-1.0; Abnormal: Above high normal; Units: MG/DL; Status: F Test: BILIRUBIN,DIRECT; Value: 0.3; Range: 0.0-0.2; Abnormal: Above high normal; Units: MG/DL; Status: F Test: TOTAL PROTEIN; Value: 8.6; Range: 6.4-8.2; Abnormal: Above high normal; Units: GM/DL; Status: F Test: ALBUMIN; Value: 4.1; Range: 3.2-5.2; Units: GM/DL; Status: F Test: ALBUMIN/GLOBULIN RATIO; Value: 0.91; Range: 1.00-1.93; Abnormal: Below low normal; Status: F Lab Order: Amylase; [facility] 05/10/16 00:02 Test: AMYLASE; Value: 61; Range: 25-115; Units: U/L; Status: F Lab Order: Lipase; [facility] 05/10/16 00:02 Test: LIPASE; Value: 105; Range: 73-393; Units: U/L; Status: F Lab Order: Urinalysis; [facility] 05/10/16 00:02 Test: APPEARANCE, URINE; Value: CLEAR; Range: CLEAR; Status: F Test: COLOR, URINE; Value: YELLOW; Range: YELLOW; Status: F Test: PH,URINE; Value: 7.0; Range: 5.0-9.0; Units: UNITS; Status: F Test: SPECIFIC GRAVITY URINE AUTO; Value: 1.011; Range: 1.002-1.035; Status: F Test: PROTEIN, URINE AUTO; Value: NEGATIVE; Range: NEGATIVE; Units: mg/dL; Status: F Test: GLUCOSE, URINE (UA) AUTO; Value: NEGATIVE; Range: NEGATIVE; Units: mg/dL; Status: F Test: KETONE, URINE AUTO; Value: TRACE; Range: NEGATIVE; Abnormal: Above high normal; Units: mg/dL; Status: F Test: UROBILINOGEN, URINE AUTO; Value: 0.2; Range: 0.0-2.0; Units: mg/dL; Status: F Test: BILIRUBIN, URINE AUTO; Value: NEGATIVE; Range: NEGATIVE; Status: F Test: NITRITE, URINE AUTO; Value: NEGATIVE; Range: NEGATIVE; Status: F Test: LEUKOCYTE ESTERASE, URINE AUTO; Value: TRACE; Range: NEGATIVE; Abnormal: Above high normal; Status: F Test: BLOOD, URINE BLOOD; Value: NEGATIVE; Range: NEGATIVE; Status: F Test: WBC, URINE AUTO; Value: 1; Range: 0-3; Units: /HPF; Status: F Test: RBC, URINE AUTO; Value: 2; Range: 0-3; Units: /HPF; Status: F Test: BACTERIA, URINE AUTO; Value: NEGATIVE; Range: NEGATIVE; Status: F Test: SQUAMOUS EPITHELIAL CELL UR AU; Value: 0; Range: 0-6; Units: /HPF; Status: F Test: MUCUS, URINE; Value: SMALL; Range: NEGATIVE; Status: F Test: HYALINE CAST, URINE AUTO; Value: 0; Range: 0-1; Units: /LPF; Status: F Lab Order: Urine Culture; SPEC'M 05/10/16 00:02 Test: URINE CULTURE; Value: <EXTERNAL COMMENT eCWMed> FULL REPORT IN LAB NOTES (eCW and Medent).; Status: F Test: URINE CULTURE; Value: URINE CULTURE RESULT SPECIMEN APPEARS CONTAMINATED; Status: F Radiology Order: Ultrasound Abd Limited Test: Ultrasound Abd Limited REASON FOR EXAMINATION: Biliary Colic; ; CLINICAL HISTORY: Abdominal pain.; TECHNIQUE: Realtime sonographic images were obtained in multiple projections.; COMMENTS:; The liver is of normal size, parenchyma demonstrates normal echogenicity. No discrete hepatic mass is; seen.; There is no intra or extrahepatic biliary ductal dilatation.; CBD measures 2.7mm.; The gallbladder is physiologically distended without evidence of calculi.; The gallbladder wall is not thickened and there is no pericholecystic fluid. There is no abdominal as; cites.; The right kidney measures 10.2 x 6.1 x 4.7 cm, free of hydronephrosis.; IMPRESSION:; Unremarkable study.; Thank you for your kind referral of this patient.; ; Outcome: 03:22 Discharge ordered by Provider. cs11 03:58 Discharge Assessment: Patient awake, alert and oriented x 3. No cognitive and/or slm functional deficits noted. Patient verbalized understanding of disposition instructions. patient administered narcotics - no. The following High Risk Discharge criteria are identified: None. Discharged to home ambulatory. Condition: good Condition: improved. Discharge instructions given to patient, Instructed on discharge instructions, follow up and referral plans. medication usage, Demonstrated understanding of instructions, medications, Pt was receptive of discharge instructions/ teaching. Prescriptions given X 1. Ultrasound Study completed. Property :Personal belongings accompany Pt. 03:59 Patient left the ED. slm Signatures: Dispatcher [employer] EDMS Rissa AbreuRN RN Sulma Ludwig RN RN sls1 Mauro Cristina, DO DO cs11 Saji Bo,RN RN joeyb Mery Churchill,PETROGRAPHY TEACHER PETROGRAPHY TEACHER slm Belgica Harman, Consolidation Accountant Unit jlLeidy Farmer, Reg Reg hs2 Xenia Cota Jose, CRIMINAL ATTORNEY CRIMINAL ATTORNEY Katelin Hyatt,RN RN tm5 Corrections: (The following items were deleted from the chart) 05/09 23:52 23:50 Allergies: No known drug Allergies; moise phipps Chart Complete MTDD
--- NOTE | 2016-05-12 04:59 | EDDOCDS ---
Physician Documentation [facility] Name: Rakel Edwards Age: 30 yrs Sex: Female : 1985 Arrival Date: 05/09/2016 Time: 23:37 Bed 11 Private MD: Fátima Deshpande Disposition: 05/10/16 03:22 Discharged to Home/Self Care. Impression: Noninfective gastroenteritis and colitis, unspecified. - Condition is Stable. - Prescriptions for Reglan 10 mg Oral Tablet - take 1 tablet by ORAL route every 6 hours take 30 minutes before meals and at bedtime; 20 tablet. - Medication Reconciliation, Local Pharmacy Hours form. - Follow up: Fátima Deshpande; When: 1 - 2 days; Reason: Recheck today's complaints. - Problem is new. - Symptoms have improved. Historical: - Allergies: Percocet; - Home Meds: 1. hydrocortisone 15mg Oral tab 2 times per day - PMHx: Asthma; Congenital adrenal hyperplasia; mild cerebral palsy; NA+ deficiency; Seasonal Allergies; - PSHx: vagioplasty; heel cord lengthening; Left foot reconstruction; - Social history: Smoking status: Patient states was never smoker of tobacco. No barriers to communication noted, The patient speaks fluent Croatian, Speaks appropriately for age. - Family history: Not pertinent. - : The pt / caregiver states he / she is not on anticoagulants. Home medication list is obtained from the patient. - Exposure Risk Screening:: None identified. 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 8 in. (172.72 cm); Pain 8/10; 05/10 03:33 BP 120 / 57; Pulse 93; Resp 20; Temp 98.3(O); Pulse Ox 98% on R/A; Pain 0/10; jmv 03:57 BP 118 / 60; Pulse 103; Resp 18; Pulse Ox 97% ; Pain 0/10; slm 05/09 23:38 Body Mass Index 28.13 (83.91 kg, 172.72 cm) jl MDM: 05/09 23:58 IV Saline Lock ordered. cs11 23:58 NS 0.9% 1000 ml IV at bolus once ordered. cs11 05/10 00:00 CBC with Diff Ordered. EDMS 00:00 MED Profile Ordered. EDMS 00:00 Liver Profile Ordered. EDMS 00:00 Amylase Ordered. EDMS 00:00 Lipase Ordered. EDMS 00:00 Urinalysis Ordered. EDMS 00:00 Urine Culture Ordered. EDMS 00:02 Hydrocortisone (PF) 250 mg IVP once ordered. cs11 00:26 NS 0.9% 1000 ml IV at bolus once ordered. cs11 00:41 CBC with Diff Reviewed. cs11 00:57 MED Profile Reviewed. cs11 00:57 Liver Profile Reviewed. cs11 00:57 Amylase Reviewed. cs11 00:57 Lipase Reviewed. cs11 01:00 Ultrasound Abd Limited Ordered. EDMS 02:01 Financial registration complete. hs2 02:49 [facility] Payment Agreement was scanned into [employer] and attached to record. hs2 03:19 Metoclopramide 10 mg IV at 40 mg/hr once over 15 mins ordered. cs11 03:19 Ultrasound Abd Limited Reviewed. cs11 08:28 T-Sheet-- Draft Copy was scanned into [employer] and attached to record. seh Administered Medications: 00:02 CANCELLED (Other Intervention Used): Dexamethasone 12 mg IV at bolus once cs11 00:12 Drug: Hydrocortisone (PF) 250 mg [hydrocortisone sod succinate (PF) 250 mg/2 mL jmb solution for injection (2 mL)] Route: IVP; Site: left antecubital; 00:13 Drug: NS 0.9% 1000 ml [sodium chloride 0.9 % intravenous solution] Route: IV; Rate: jmb bolus; Site: left antecubital; 01:34 Drug: NS 0.9% 1000 ml [sodium chloride 0.9 % intravenous solution] Route: IV; Rate: jmb bolus; Site: left antecubital; 03:33 Drug: Metoclopramide 10 mg [metoclopramide 5 mg/mL injection solution] {Note: given tm5 IVPB in 50cc NS over 15 minutes.} Route: IV; Rate: 40 mg/hr; Infused Over: 15 mins; Site: left antecubital; 03:55 Follow up: IV Status: Completed infusion sls1 Signatures: Dispatcher [employer] Rissa Sarah RN RN jo3 Mauro Cristina, DO cs11 Saji Bo RN RN Mery Velez LPN LPN [facility] Leidy Mcdowell, Reg Reg hs2 Xenia Cota Shannon RN sls1 Katelin Bishop RN tm5 The chart was reviewed and I authenticate all verbal orders and agree with the evaluation and treatment provided.Corrections: (The following items were deleted from the chart) 05/09 23:52 23:50 Allergies: No known drug Allergies; jo3 jo3 05/10 00:02 05/09 23:58 Dexamethasone 12 mg IV at bolus once ordered. cs11 cs11 Attachments: 05/10 02:49 [facility] Payment Agreement hs2 08:28 T-Sheet-- Draft Copy [facility] Chart Complete MTDD
--- NOTE | 2016-05-12 04:59 | EDDOCDS ---
Physician Documentation [facility] Name: Rakel Edwards Age: 30 yrs Sex: Female : 1985 Arrival Date: 05/09/2016 Time: 23:37 Bed 11 Private MD: Fátima Deshpande Disposition: 05/10/16 03:22 Discharged to Home/Self Care. Impression: Noninfective gastroenteritis and colitis, unspecified. - Condition is Stable. - Prescriptions for Reglan 10 mg Oral Tablet - take 1 tablet by ORAL route every 6 hours take 30 minutes before meals and at bedtime; 20 tablet. - Medication Reconciliation, Local Pharmacy Hours form. - Follow up: Fátima Deshpande; When: 1 - 2 days; Reason: Recheck today's complaints. - Problem is new. - Symptoms have improved. Historical: - Allergies: Percocet; - Home Meds: 1. hydrocortisone 15mg Oral tab 2 times per day - PMHx: Asthma; Congenital adrenal hyperplasia; mild cerebral palsy; NA+ deficiency; Seasonal Allergies; - PSHx: vagioplasty; heel cord lengthening; Left foot reconstruction; - Social history: Smoking status: Patient states was never smoker of tobacco. No barriers to communication noted, The patient speaks fluent Urdu, Speaks appropriately for age. - Family history: Not pertinent. - : The pt / caregiver states he / she is not on anticoagulants. Home medication list is obtained from the patient. - Exposure Risk Screening:: None identified. 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 8 in. (172.72 cm); Pain 8/10; 05/10 03:33 BP 120 / 57; Pulse 93; Resp 20; Temp 98.3(O); Pulse Ox 98% on R/A; Pain 0/10; jmv 03:57 BP 118 / 60; Pulse 103; Resp 18; Pulse Ox 97% ; Pain 0/10; slm 05/09 23:38 Body Mass Index 28.13 (83.91 kg, 172.72 cm) jl MDM: 05/09 23:58 IV Saline Lock ordered. cs11 23:58 NS 0.9% 1000 ml IV at bolus once ordered. cs11 05/10 00:00 CBC with Diff Ordered. EDMS 00:00 MED Profile Ordered. EDMS 00:00 Liver Profile Ordered. EDMS 00:00 Amylase Ordered. EDMS 00:00 Lipase Ordered. EDMS 00:00 Urinalysis Ordered. EDMS 00:00 Urine Culture Ordered. EDMS 00:02 Hydrocortisone (PF) 250 mg IVP once ordered. cs11 00:26 NS 0.9% 1000 ml IV at bolus once ordered. cs11 00:41 CBC with Diff Reviewed. cs11 00:57 MED Profile Reviewed. cs11 00:57 Liver Profile Reviewed. cs11 00:57 Amylase Reviewed. cs11 00:57 Lipase Reviewed. cs11 01:00 Ultrasound Abd Limited Ordered. EDMS 02:01 Financial registration complete. hs2 02:49 [facility] Payment Agreement was scanned into [employer] and attached to record. hs2 03:19 Metoclopramide 10 mg IV at 40 mg/hr once over 15 mins ordered. cs11 03:19 Ultrasound Abd Limited Reviewed. cs11 08:28 T-Sheet-- Draft Copy was scanned into [employer] and attached to record. seh Administered Medications: 00:02 CANCELLED (Other Intervention Used): Dexamethasone 12 mg IV at bolus once cs11 00:12 Drug: Hydrocortisone (PF) 250 mg [hydrocortisone sod succinate (PF) 250 mg/2 mL jmb solution for injection (2 mL)] Route: IVP; Site: left antecubital; 00:13 Drug: NS 0.9% 1000 ml [sodium chloride 0.9 % intravenous solution] Route: IV; Rate: jmb bolus; Site: left antecubital; 01:34 Drug: NS 0.9% 1000 ml [sodium chloride 0.9 % intravenous solution] Route: IV; Rate: jmb bolus; Site: left antecubital; 03:33 Drug: Metoclopramide 10 mg [metoclopramide 5 mg/mL injection solution] {Note: given tm5 IVPB in 50cc NS over 15 minutes.} Route: IV; Rate: 40 mg/hr; Infused Over: 15 mins; Site: left antecubital; 03:55 Follow up: IV Status: Completed infusion sls1 Signatures: Dispatcher [employer] Rissa Sarah RN RN jo3 Mauro Cristina, DO cs11 Saji Bo RN RN Mery Velez LPN LPN [facility] Leidy Mcdowell, Reg Reg hs2 Xenia Cota Shannon RN sls1 Katelin Bishop RN tm5 The chart was reviewed and I authenticate all verbal orders and agree with the evaluation and treatment provided.Corrections: (The following items were deleted from the chart) 05/09 23:52 23:50 Allergies: No known drug Allergies; jo3 jo3 05/10 00:02 05/09 23:58 Dexamethasone 12 mg IV at bolus once ordered. cs11 cs11 Attachments: 05/10 02:49 [facility] hs2 08:28 T-Sheet-- Draft Copy [facility] Chart Complete MTDD
== END 2016-05-10 03:59 | disposition home or self-care (01) ==
LOC: M ED 23:37
DX: K52.9 Noninfective gastroenteritis and colitis, unspecified (principal); J45.909 Unspecified asthma, uncomplicated; E25.0 Congenital adrenogenital disorders associated with enzyme deficiency; G80.8 Other cerebral palsy; Z79.899 Other long term (current) drug therapy; Z88.5 Allergy status to narcotic agent
CPT/HCPCS: 36415; 76705; 80048; 80076; 81001; 82150; 83690; 85025; 87086; 96365; 96375; 99284; J1720; J2765

== ENCOUNTER 2016-09-15 09:17 | Emergency (ER) | payer MEDICARE, MEDICAID ==
[~2016-09-15] VITALS: Ht 172.7 cm; Wt 86.4 kg
[2016-09-15 10:06] LABS: BLOOD UREA NITROGEN 11 MG/DL (7-18); CREATININE FOR GFR 1.08 MG/DL (0.55-1.02); GLUCOSE, FASTING 95 MG/DL (70-105)
[2016-09-15 10:07] LABS: ANION GAP 6 MEQ/L (8-16); CARBON DIOXIDE LEVEL 24 MEQ/L (21-32); CHLORIDE LEVEL 105 MEQ/L (98-107); GLOMERULAR FILTRATION RATE > 60.0 (>60); POTASSIUM SERUM 3.9 MEQ/L (3.5-5.1); SODIUM LEVEL 135 MEQ/L (136-145)
[2016-09-15 10:09] LABS: BASO # 0.1 K/mm3 (0.0-0.2); EOS # 0.7 K/mm3 (0.0-0.50); EOS % 9.8 % (0.0-3.0); LARGE UNSTAINED CELL # 0.1 K/mm3 (0.0-0.4); LARGE UNSTAINED CELL % 1.7 % (0.0-4.0); LYMPH # 1.9 K/mm3 (1.5-4.5); LYMPH % 25.9 % (24.0-44.0); MEAN CORPUSCULAR HEMOGLOBIN 31.3 pg (27.0-33.0); MEAN CORPUSCULAR HGB CONC 35.2 g/dl (32.0-36.5); MEAN CORPUSCULAR VOLUME 89.1 fl (80.0-96.0); MONO # 0.2 K/mm3 (0.0-0.8); MONO % 3.4 % (0.0-5.0); NEUTROPHILS % 58.2 % (36.0-66.0); PLATELET COUNT, AUTOMATED 281 k/mm3 (150-450); RED CELL DISTRIBUTION WIDTH 12.7 % (11.5-14.5); WHITE BLOOD COUNT 6.9 K/mm3 (4.0-10.0)
[2016-09-15] MEDS ORDERED: ISOVUE-370 76% 100ML VIAL (Q9967) As Ordered ONE (10:13)
[2016-09-15] MEDS ORDERED: CLEO300C2 PO (10:44)
--- NOTE | 2016-09-15 10:48 | REP ---
Clinical: Submandibular swelling. Technique: Axial contrast enhanced images from the mid skull to the thoracic inlet with coronal and sagittal re-formations using 100 ml Isovue 370 intravenous contrast material. Comparison: None. Findings: Submandibular/submental lymph nodes are identified and likely related to the symptoms and physical findings. Lymph nodes measure up to approximately 16 x 10 x 10 mm. No associated fluid, inflammatory stranding, or abscess. Mucoperiosteal thickening involving the ethmoid and maxillary sinuses (right greater than left) is consistent with sinusitis. The nasopharynx, oropharynx and hypopharynx to the upper trachea appears patent, midline and without mass or mass effect. The surrounding parapharyngeal and retropharyngeal soft tissues are normal. The parapharyngeal fat pads are symmetric. The bilateral parotid, submandibular and submental glands are normal and there is no evidence for sialolith. The vasculature is unremarkable. The osseous structures are intact. Impression: Submental/submandibular adenopathy with lymph nodes measuring up to 16 x 10 x 10 mm may reflect reactive changes related to inflammatory process involving the oral cavity. No abscess, fluid collection, or significant inflammatory changes are appreciated. Signed by Freedom Stanford MD 09/15/2016 10:39 A
[2016-09-15 11:03] VITALS: BP 140/88
== END 2016-09-15 11:04 | disposition home or self-care (01) ==
LOC: M ED 09:17
DX: R59.0 Localized enlarged lymph nodes (principal); G43.909 Migraine, unspecified, not intractable, without status migrainosus; F41.9 Anxiety disorder, unspecified; F32.9 Major depressive disorder, single episode, unspecified; Q89.1 Congenital malformations of adrenal gland
CPT/HCPCS: 70491; 80048; 85025; 99283; Q9967

== ENCOUNTER → 2016-10-08 | Outpatient (REF) | payer MEDICARE ==
[~2016-10-08] MED LIST changes: +CLEO300C2 PO; +CYCL10TA PO
== END ==
LOC: M LAB REF 13:22
PROVIDERS: ATTEND Nurse Practitioner Family
DX: E25.0 Congenital adrenogenital disorders associated with enzyme deficiency (principal); R93.8 Abnormal findings on diagnostic imaging of other specified body structures

== ENCOUNTER 2016-12-23 14:32 | Emergency (ER) | payer MEDICARE, MEDICAID ==
[~2016-12-23] VITALS: Ht 172.7 cm; Wt 192.0 kg
[~2016-12-23 14:32] MED LIST changes: -CYCL10TA PO
[2016-12-23] MEDS ORDERED: CYCL10TA PO (17:35)
[2016-12-23] MEDS ORDERED: KETOROLAC 60 MG/2 ML VIAL (J1885) IM ONE (17:45)
[2016-12-23 18:18] VITALS: BP 136/76
== END 2016-12-23 18:18 | disposition home or self-care (01) ==
LOC: M ED 14:32
DX: M54.16 Radiculopathy, lumbar region (principal); G80.9 Cerebral palsy, unspecified; E25.0 Congenital adrenogenital disorders associated with enzyme deficiency; E25.8 Other adrenogenital disorders; Z79.52 Long term (current) use of systemic steroids; Z88.5 Allergy status to narcotic agent; Z88.8 Allergy status to other drugs, medicaments and biological substances
CPT/HCPCS: 96372; 99282; J1885

== ENCOUNTER 2019-02-22 07:23 | Emergency (ER) | payer MEDICARE, MEDICAID ==
[~2019-02-22] VITALS: Ht 172.7 cm; Wt 93.6 kg
[~2019-02-22 07:23] MED LIST changes: +CYCL10TA PO; +HYDR-4327 PO; -HYDR5TAB59 PO; +METH750T2 PO; -METH75TA PO
[2019-02-22 07:24] VITALS: BP 121/64
[2019-02-22] MEDS ORDERED: HYDR-4513 (07:33)
[2019-02-22] MEDS ORDERED: FLUD0.1T (07:33)
[2019-02-22] MEDS ORDERED: ALBUTEROL SULFATE 2.5 MG/0.5 ML INH NEB SOLN NEB ONE (08:00)
--- NOTE | 2019-02-22 08:30 | REP ---
Chest x-ray: Two views. History: Chest pain, cough, shortness of breath. Comparison chest x-ray: February 02, 2016. Findings: There is a new infiltrate in the right lower lobe indicating pneumonia. The lung ray are otherwise clear. Pleural angles are sharp. Heart size is normal. Pulmonary vasculature is not increased. Impression: Right lower lobe pneumonia. Electronically Signed by Gianfranco Negrete MD 02/22/2019 08:22 A
[2019-02-22 08:52] LABS: BASO # 0.1 10^3/uL (0.0-0.2); BASO % 1.2 % (0.0-1.0); EOS # 0.3 10^3/uL (0.0-0.5); EOS % 4.4 % (0.0-3.0); HEMOGLOBIN 15.2 g/dl (12.0-15.5); LYMPH # 1.7 10^3/uL (1.5-5.0); LYMPH % 29.9 % (24.0-44.0); MEAN CORPUSCULAR HEMOGLOBIN 29.9 pg (27.0-33.0); MEAN CORPUSCULAR HGB CONC 33.8 g/dl (32.0-36.5); MEAN CORPUSCULAR VOLUME 88.4 fl (80.0-96.0); MONO # 0.8 10^3/uL (0.0-0.8); MONO % 14.8 % (0.0-5.0); NEUTROPHILS # 2.8 10^3/uL (1.5-8.5); NEUTROPHILS % 49.7 % (36.0-66.0); PLATELET COUNT, AUTOMATED 289 10^3/uL (150-450); RED BLOOD COUNT 5.09 10^6/uL (4.00-5.40); WHITE BLOOD COUNT 5.7 10^3/uL (4.0-10.0)
[2019-02-22 09:11] LABS: INFLUENZA A AMPLIFICATION NEGATIVE (NEGATIVE); INFLUENZA B AMPLIFICATION NEGATIVE (NEGATIVE)
[2019-02-22 09:20] LABS: BLOOD UREA NITROGEN 6 MG/DL (7-18); CALCIUM LEVEL 8.9 MG/DL (8.5-10.1); CARBON DIOXIDE LEVEL 27 MEQ/L (21-32); CHLORIDE LEVEL 108 MEQ/L (98-107); CK-MB VALUE MASS 1.2 NG/ML (<3.6); CPK CREATINE PHOSPHOKINASE 407 U/L (26-192); CREATININE FOR GFR 1.09 MG/DL (0.55-1.30); GLOMERULAR FILTRATION RATE > 60.0 (>60); GLUCOSE, FASTING 88 MG/DL (70-100); MB/CK RELATIVE INDEX 0.29 (< OR =4); POTASSIUM SERUM 4.1 MEQ/L (3.5-5.1); SODIUM LEVEL 139 MEQ/L (136-145); TROPONIN I < 0.02 NG/ML (< 0.10)
[2019-02-22] MEDS ORDERED: TESS100C PO (09:46)
[2019-02-22] MEDS ORDERED: LEVA750T7 PO (09:46)
[2019-02-22] MEDS ORDERED: BENZONATATE 100 MG CAP PO ONE (10:00)
[2019-02-22] MEDS ORDERED: ACETAMINOPHEN 325 MG TAB PO ONE (10:15)
--- NOTE | 2019-02-22 18:30 | ECGEPIP ---
[facility] - ED Test Date: 2019-02-22 Pat Name: MARCOS OLEARY Department: Room: - Gender: Female Hand Collator: HERBERTH : 1985 Requested By: KTAHARINE Lindsey PA-C Order Number: [id number] Reading MD: Daljit Laura Measurements Intervals [place] Rate: 89 P: 45 CO: 164 QRS: 28 QRSD: 88 T: 23 QT: 331 QTc: 404 Interpretive Statements SINUS RHYTHM NONSPECIFIC T-WAVE ABNORMALITY SIMILAR TO 02/04/16 Electronically Signed on 02-22-2019 18:29:58 EST by Daljit Laura
== END 2019-02-22 10:20 | disposition home or self-care (01) ==
LOC: M ED 07:23
DX: J18.1 Lobar pneumonia, unspecified organism (principal); J45.909 Unspecified asthma, uncomplicated; G80.9 Cerebral palsy, unspecified; E25.0 Congenital adrenogenital disorders associated with enzyme deficiency; Z79.899 Other long term (current) drug therapy; Z79.52 Long term (current) use of systemic steroids; Z88.5 Allergy status to narcotic agent; Z88.8 Allergy status to other drugs, medicaments and biological substances

== ENCOUNTER 2019-03-05 08:15 | Emergency (ER) | payer MEDICARE, MEDICAID ==
[~2019-03-05] VITALS: Ht 172.7 cm; Wt 90.0 kg
[~2019-03-05 08:15] MED LIST changes: +FLUD0.1T; +HYDR-4513; +LEVA750T7 PO; +TESS100C PO
[2019-03-05] MEDS ORDERED: MELO15TA28 PO (08:21)
[2019-03-05] MEDS ORDERED: diazePAM 10 MG TAB PO ONE (09:00)
[2019-03-05] MEDS ORDERED: KETOROLAC 30 MG/ML VIAL (J1885) IV ONE (09:00)
[2019-03-05] MEDS ORDERED: methylPREDNISolone INJ 125 MG/2 ML VIAL (J2930) IV ONE (09:00)
[2019-03-05] MEDS ORDERED: ZANA4TAB PO (10:03)
[2019-03-05 10:10] VITALS: BP 127/53
--- NOTE | 2019-03-05 11:43 | REP ---
REASON: Back pain. COMPARISON: 10/09/2014 FINDINGS: Five views of the lumbosacral spine show no acute fracture, dislocation or subluxation. The intervertebral disc spaces are symmetric and well maintained. There is no spondylolysis or spondylolisthesis. The pedicles are intact bilaterally and there is no destructive osseous lesion. IMPRESSION: Unremarkable lumbosacral spine series. No change. Electronically Signed by Carl Carson DO 03/05/2019 12:15 P
== END 2019-03-05 10:21 | disposition home or self-care (01) ==
LOC: M ED 08:15
DX: M54.41 Lumbago with sciatica, right side (principal); G80.9 Cerebral palsy, unspecified; Z79.899 Other long term (current) drug therapy; Z88.5 Allergy status to narcotic agent; Z88.8 Allergy status to other drugs, medicaments and biological substances
CPT/HCPCS: 72110; 96374; 96375; 99284; J1885; J2930

== ENCOUNTER 2019-04-02 08:08 | Emergency (ER) | payer MEDICARE, MEDICAID ==
[~2019-04-02] VITALS: Ht 172.7 cm; Wt 92.0 kg
[~2019-04-02 08:08] MED LIST changes: -HYDR-4513; +HYDR-4513 PO; +MELO15TA28 PO; +ZANA4TAB PO
[2019-04-02] MEDS ORDERED: VENTAER INH (08:17)
[2019-04-02 09:04] LABS: INFLUENZA A AMPLIFICATION NEGATIVE (NEGATIVE); INFLUENZA B AMPLIFICATION POSITIVE (NEGATIVE)
[2019-04-02] MEDS ORDERED: OSEL75CA PO (09:36)
[2019-04-02 09:51] VITALS: BP 131/74
== END 2019-04-02 09:55 | disposition home or self-care (01) ==
LOC: M ED 08:08
DX: J10.1 Influenza due to other identified influenza virus with other respiratory manifestations (principal); F32.9 Major depressive disorder, single episode, unspecified; F41.9 Anxiety disorder, unspecified; G80.9 Cerebral palsy, unspecified; J45.909 Unspecified asthma, uncomplicated; Z79.51 Long term (current) use of inhaled steroids; Z79.899 Other long term (current) drug therapy; Z88.5 Allergy status to narcotic agent; Z88.6 Allergy status to analgesic agent

== ENCOUNTER 2019-05-02 12:21 | Emergency (ER) | payer MEDICARE, MEDICAID ==
[~2019-05-02] VITALS: Ht 172.7 cm; Wt 92.1 kg
[~2019-05-02 12:21] MED LIST changes: +OSEL75CA PO; +VENTAER INH
[2019-05-02 12:22] VITALS: BP 121/70
[2019-05-02] MEDS ORDERED: DROS3TAB PO (13:04)
== END 2019-05-02 13:35 | disposition home or self-care (01) ==
LOC: M ED 12:21
DX: K62.5 Hemorrhage of anus and rectum (principal); Z88.6 Allergy status to analgesic agent; Z88.5 Allergy status to narcotic agent

== ENCOUNTER 2019-05-29 12:19 | Emergency (ER) | payer MEDICARE, MEDICAID ==
[~2019-05-29] VITALS: Ht 172.7 cm; Wt 92.7 kg
[~2019-05-29 12:19] MED LIST changes: +DROS3TAB PO
[2019-05-29] MEDS ORDERED: HYDROCORTISONE 10 MG TAB PO ONE (13:00)
[2019-05-29] MEDS ORDERED: KETOROLAC 60 MG/2 ML VIAL (J1885) IM ONE (13:00)
[2019-05-29] MEDS ORDERED: tiZANidine 4 MG TAB PO ONE (13:00)
[2019-05-29] MEDS ORDERED: diazePAM 10 MG/2 ML INJ (J3360) IM ONE (15:00)
[2019-05-29] MEDS ORDERED: KETO10TAB PO (15:52)
[2019-05-29] MEDS ORDERED: TIZA4CAP PO (15:52)
[2019-05-29] MEDS ORDERED: LIDOCAINE 5% (LIDODERM) PATCH TD STA (17:17)
[2019-05-29] MEDS ORDERED: LIDO5DIS41 TOP (17:18)
[2019-05-29 17:42] VITALS: BP 107/58
--- NOTE | 2019-05-30 07:52 | REP ---
REASON: Severe low back pain after trauma. COMPARISON: 03/05/2019. FINDINGS: Five views of the lumbosacral spine show no acute fracture, dislocation or subluxation. The intervertebral disc spaces are symmetric and well maintained. There is no spondylolisthesis. The pedicles are intact bilaterally and there is no destructive osseous lesions. IMPRESSION: Unremarkable lumbosacral spine series. No significant change from the prior exam. Electronically Signed by Carl Carson DO 05/30/2019 01:29 P
== END 2019-05-29 17:42 | disposition home or self-care (01) ==
LOC: M ED 12:19
DX: M54.41 Lumbago with sciatica, right side (principal); F41.9 Anxiety disorder, unspecified; F32.9 Major depressive disorder, single episode, unspecified; J45.909 Unspecified asthma, uncomplicated; Z79.899 Other long term (current) drug therapy; Z88.6 Allergy status to analgesic agent; Z88.5 Allergy status to narcotic agent
CPT/HCPCS: 72110; 96372; 99284; J1885; J3360

== ENCOUNTER → 2020-11-12 | Outpatient (CLI) | payer MEDICARE, MEDICAID ==
[~2020-11-12] MED LIST changes: +CYCL-707 PO; -CYCL10TA PO; -HYDR-4327 PO; +HYDR-4467 PO; +HYDR-4468 PO; -HYDR-4513 PO; +KETO10TAB PO; +LIDO5DIS41 TOP; +METH-1165 PO; -METH750T2 PO; +METHACHOLINE KIT (J7674) INH ONE; +TIZA4CAP PO
--- NOTE | 2020-11-12 09:42 | PFTRPT ---
Height: 68.00 Inches Weight: 197.00 Lbs BSA: 2.03 Diagnosis: J45.2 DATE: 11/12/2020 METHACHOLINE CHALLENGE STUDY ORDERED BY: Theresa Salinas DO QUALITY: Study of excellent technical quality. PROCEDURE: Under protocol, methacholine was administered. At a dose of 2.5 mg or 13.875 CDUs, a 39% decline in the FEV1 was noted. PC of 0.33 is significant. Flow rates did return to baseline post bronchodilator administration. IMPRESSION: Positive methacholine challenge study. MTDD
== END ==
LOC: M CARPUL 08:52
PROVIDERS: ATTEND Internal Medicine
DX: J45.20 Mild intermittent asthma, uncomplicated (principal)
CPT/HCPCS: 94070; 95070; J7674

== ENCOUNTER 2021-01-05 05:25 | Emergency (ER) | payer MEDICARE, MEDICAID ==
[~2021-01-05] VITALS: Ht 172.7 cm; Wt 92.7 kg
[2021-01-05 05:25] VITALS: BP_DIAS 81
[~2021-01-05 05:25] MED LIST changes: -METHACHOLINE KIT (J7674) INH ONE
--- OUTSIDE RECORDS SUMMARY | 2021-01-05 05:31 | CCD | Continuity of Care Document ---
Author Author Nurse #Rakel Mosqueda Organization Unknown Address [address] [place] [address] Phone Unavailable Care Team Providers Care Supervisor Prep Name Role Phone cristi Patterson MD AUTM [phone] Sindhu Irving AUTM [facility] AUTM [phone] Theresa Salinas DO AUTM Unavailable [facility] Radiology AUTM [phone] Problems Description No Information Available Social History Type Date Description Comments Sex Unknown ETOH Use Denies alcohol use Tobacco Use Start: Unknown Patient has never smoked Allergies, Adverse Reactions, Alerts Active Allergies Reaction Severity Comments Date Percocet causes migraines 10/14/2018 Inactive Allergies NKDA 02/12/2012 Medications Active Medications SIG Qnty Indications Ordering Provide r Date Vitamin D3 1000Unit Tablets 1 by mouth every other day 30tabs Theresa Salinas DO 01/23/2020 Neurontin 100mg Capsules take one capsule in am and two at hs 90caps Theresa Salinas DO 06/08/2019 Ipratropium [place]/Albuterol Sulfate 0.5-2.5(3)mg/3ML Solution every 6 hours as needed for sob and wheezing 90ml J45.998 Theresa Salinas DO 01/25/2018 Zyrtec Allergy 10mg Tablets 1 by mouth every hs prn 90tabs FLORES Fan 03/05/2017 Ventolin HFA 108(90Base) mcg/Act A erosol 2 puffs four times a day as needed 1units Theresa Salinas DO 02/14/2016 Nebulizer Misc as directed 1units FLORES Hernandez 04/24/2015 Fludrocortisone Acetate 0.1mg Tabl ets 2 by mouth every am Sindhu Irving 000 Ocella 3-0.03mg Tablets 1 by mouth every day Unknown Cortef 10mg Tablets 1 po bid Sindhu Irving Baclofen 10mg Tablets take one tablet by mouth tid as needed [facility] Medications Administered in Office Medication SIG Qnty Indications Ordering Provider Date Covid-19 vaccine, Unspecified Inj ection Unknown 06/11/2020 Covid-19 vaccine, Unspecified Inj ection Unknown 05/18/2020 Administration Of Flu Vaccine Inj ection Theresa Salinas,DO 01/23/2020 Administration Of Flu Vaccine Inj ection Buster Emerson, ACCOUNTANT TAX 12/18/2017 Immunizations CPT Code Status Date Vaccine Lot # [id number] Given 01/23/2020 Influenza Vaccin e Quadrivalent Preser/Antibiotic Free Im Use [id number] Given 12/18/2017 Influenza Virus Vaccine, Quadrivalent (Cciiv4), Derived From Cell U-Flu Given 02/07/2017 Influenza,Unspecified U-DtapHi Given 07/04/2013 DTap,Hib,IPV,Unspecified Vital Signs Date Vital Result Comment 10/25/2020 9:13am BP Systolic 128 mmHg BP Diastolic 68 mmHg Heart Rate 69 /min Height 67.75 inches 5'7.75" Weight 197.12 lb O2 % BldC Oximetry 97 % RM Air BMI (Body Mass Index) 30.2 kg/m2 04/17/2020 8:01am BP Systolic 104 mmHg BP Diastolic 68 mmHg Height 67.75 inches 5'7.75" Weight 206.00 lb BMI (Body Mass Index) 31.6 kg/m2 Results Description No Information Available Procedures Date Code Description Status 08/16/2019 351343299 Diabetic Foot Exam Completed 05/29/2004 304183680 Bone Mineral Density Test Comple ARCsys Description No Information Available Encounters Description No Information Available Assessments Description No Information Available Plan of Treatment No Information Available Functional Status Description No Information Available Mental Status Description No Information Available Referrals Description No Information Available
--- OUTSIDE RECORDS SUMMARY | 2021-01-05 05:31 | CCD | Continuity of Care Document ---
Author Author Rakel ENCINAS Organization Unknown Address [address] [place] [address] Phone [phone] Care Team Providers Care Art Objects Supervisor Name Role Phone cristi Patterson MD AUTM [phone] Sindhu Irving AUTM [phone] [facility] AUTM Theresa Encinas DO AUTM Unavailable [facility] Radiology AUTM [phone] Problems Description No Information Available Social History [...] by mouth every other day 30tabs Theresa Encinas DO 01/23/2020 Neurontin 100mg Capsules take one capsule in am and two at hs 90caps Theresa Encinas DO 06/08/2019 Ipratropium [place]/Albuterol Sulfate 0.5-2.5(3)mg/3ML Solution every 6 hours as needed for sob and wheezing 90ml J45.998 Theresa Encinas DO 01/25/2018 Zyrtec Allergy 10mg Tablets 1 by mouth every hs prn 90tabs Buster Emerson SERVICE CAPTAIN 03/05/2017 Ventolin HFA 108(90Base) mcg/Act A erosol 2 puffs four times a day as needed 1unnoah Encinas DO 02/14/2016 Nebulizer Misc as directed 1units Anne Kyle, SERVICE CAPTAIN 04/24/2015 Fludrocortisone Acetate 0.1mg Tabl ets 2 by mouth every am iSndhu Irving Ocella 3-0.03mg Tablets 1 by mouth every day Unknown Cortef 10mg Tablets 1 po bid Sindhu Irving Baclofen 10mg Tablets take one tablet by mouth tid as needed [facility] Medications Administered in Office Medication SIG Qnty Indications Ordering Provider Date Covid-19 vaccine, Unspecified Inj ection Unknown 06/11/2020 Covid-19 vaccine, Unspecified Inj ection Unknown 05/18/2020 Administration Of Flu Vaccine Inj ection Theresakellen Encinas,DO 01/23/2020 Administration Of Flu Vaccine Inj ection Buster Idania, SERVICE CAPTAIN 12/18/2017 Immunizations CPT Code Status Date Vaccine Lot # [id number] Given 01/23/2020 Influenza Vaccin e Quadrivalent Preser/Antibiotic Free Im Use [id number] Given 12/18/2017 Influenza Virus Vaccine, Quadrivalent (Cciiv4), [...] Available Procedures Date Code Description Status 08/16/2019 251197927 Diabetic Foot Exam Completed 05/29/2004 795015728 Bone Mineral Density Test Comple Acumatica Description No Information Available Encounters Description No Information Available Assessments Description No Information Available Plan of Treatment No Information Available Functional Status Description No Information Available Mental Status Description No Information Available Referrals Description No Information Available
--- OUTSIDE RECORDS SUMMARY | 2021-01-05 05:31 | CCD | Continuity of Care Document ---
Author Author Rakel ENCINAS Organization Unknown Address [address] [place] [address] Phone [phone] Care Team Providers Care Valet Cashier Name Role Phone cristi Patterson MD AUTM [phone] Sindhu Irving AUTM [facility] AUTM Theresa Encinas DO AUTM Unavailable [facility] Radiology AUTM [phone] Problems Description No Information Available Social History [...] hs 90caps Theresa Encinas DO 06/08/2019 Ipratropium [place]/Albuterol Sulfate 0.5-2.5(3)mg/3ML Solution every 6 hours as needed for sob and wheezing 90ml J45.998 Theresa Encinas DO 01/25/2018 Zyrtec Allergy 10mg Tablets 1 by mouth every hs prn 90tabs [place] FanP 03/05/2017 Ventolin HFA 108(90Base) mcg/Act A erosol 2 puffs four times a day as needed 1unnoah Encinas DO 02/14/2016 Nebulizer Misc as directed 1units Anne Kyle, COYOTE HUNTER 04/24/2015 Fludrocortisone Acetate 0.1mg Tabl ets 2 by mouth every am Sindhu Irving Ocella 3-0.03mg Tablets 1 by mouth every day Unknown Cortef 10mg Tablets 1 po bid Sindhu Irving Baclofen 10mg Tablets take one tablet by mouth tid as needed [facility] Medications Administered in Office Medication SIG Qnty Indications Ordering Provider Date Covid-19 vaccine, Unspecified Inj ection Unknown 06/11/2020 Covid-19 vaccine, Unspecified Inj ection Unknown 05/18/2020 Administration Of Flu Vaccine Inj ection Theresa Encinas,DO 01/23/2020 Administration Of Flu Vaccine Inj ection Buster Idania, COYOTE HUNTER 12/18/2017 Immunizations CPT Code Status Date Vaccine Lot # [id number] Given 01/23/2020 Influenza Vaccin e Quadrivalent Preser/Antibiotic Free Im Use [id number] Given 12/18/2017 Influenza Virus Vaccine, Quadrivalent (Cciiv4), [...] Information Available Procedures Date Code Description Status 10/25/2020 28782 Office/Outpatient Established Mo d MDM 30-39 Min Completed 08/16/2019 [id number] Diabetic Foot Exam Completed 05/29/2004 854810382 Bone Mineral Density Test Comple citysocializer Description No Information Available Encounters Type Date Location Provider Dx Diagnosis Office Visit 10/25/2020 9:00a [facility] 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) use of s ystemic steroids Z13.89 Encounter for screening for other disorder Assessments Date Code Description Provider 10/25/2020 E25.0 Congenital adrenogen ital disorders associated with enzyme deficiency Theresa Encinas DO 10/25/2020 G80.9 Cerebral palsy, unspecified Marcelo Encinas, 10/25/2020 J45.20 Mild intermittent asthma, uncomp licated Theresa Encinas, 10/25/2020 Z79.52 tank terminal gauger (current) use of syste abby steroids Theresa Encinas DO 10/25/2020 Z13.89 Encounter for screening for othe r disorder Theresa Encinas DO Plan of Treatment Future Appointment(s):* 01/04/2021 9:00 am - Theresa Encinas DO at [facility] 10/25/2020 - Theresa Encinas DO* E25.0 Congenital adrenogenital disorders associated with enzyme deficiency * G80.9 Cerebral palsy, unspecified * J45.20 Mild intermittent asthma, uncomplicated * Z79.52 tank terminal gauger (current) use of systemic steroids * Z13.89 Encounter for screening for other disorder Functional Status Description No Information Available Mental Status Description No Information Available Referrals Description No Information Available
--- OUTSIDE RECORDS SUMMARY | 2021-01-05 05:32 | CCD ---
Author Author [facility] Organization [facility] Address Unknown Phone Unavailable Care Team Providers Care Dough Puncher Name Role Phone Luís Mccann MD Unavailable Unavailable Luís Mccann MD Unavailable Unavailable Luís Mccann MD Unavailable Unavailable Luís Mccann MD Unavailable Unavailable Luís Mccann MD Unavailable Unavailable Luís Mccann MD Unavailable Unavailable Luís Mccann MD Unavailable Unavailable Luís Mccann MD Unavailable Unavailable Luís Mccann MD Unavailable Unavailable Luís Mccann MD Unavailable Unavailable Luís Mccann MD Unavailable Unavailable Luís Mccann MD Unavailable Unavailable Luís Mccann MD Unavailable Unavailable Luís Mccann MD Unavailable Unavailable Luís Mccann MD Unavailable Unavailable Luís Mccann MD Unavailable Unavailable Luís Mccann MD Unavailable Unavailable Luís Mccann MD Unavailable Unavailable Luís Mccann MD Unavailable Unavailable Luís Mccann MD Unavailable Unavailable Luís Mccann MD Unavailable Unavailable Luís Mccann MD Unavailable Unavailable Luís Mccann MD Unavailable Unavailable Luís Mccann MD Unavailable Unavailable Luís Mccann MD Unavailable Unavailable Luís Mccann MD Unavailable Unavailable Luís Mccann MD Unavailable Unavailable Luís Mccann MD Unavailable Unavailable Luís Mccann MD Unavailable Unavailable Luís Mccann MD Unavailable Unavailable Luís Mccann MD Unavailable Unavailable Luís Mccann MD Unavailable Unavailable Luís Mccann MD Unavailable Unavailable Luís Mccann MD Unavailable Unavailable Luís Mccann MD Unavailable Unavailable Luís Mccann MD Unavailable Unavailable Luís Mccann MD Unavailable Unavailable Luís Mccann MD Unavailable Unavailable Luís Mccann MD Unavailable Unavailable Luís Mccann MD Unavailable Unavailable Luís Mccann MD Unavailable Unavailable Luís Mccann MD Unavailable Unavailable Luís Mccann MD Unavailable Unavailable Luís Mccann MD Unavailable Unavailable Luís Mccann MD Unavailable Unavailable Luís Mccann MD Unavailable Unavailable Luís Mccann MD Unavailable Unavailable Luís Mccann MD Unavailable Unavailable Luís Mccann MD Unavailable Unavailable Luís Mccann MD Unavailable Unavailable Luís Mccann MD Unavailable Unavailable Luís Mccann MD Unavailable Unavailable Luís Mccann MD Unavailable Unavailable Luís Mccann MD Unavailable Unavailable Luís Mccann MD Unavailable Unavailable Luís Mccann MD Unavailable Unavailable Luís Mccann MD Unavailable Unavailable Luís Mccann MD Unavailable Unavailable Luís Mccann MD Unavailable Unavailable Luís Mccann MD Unavailable Unavailable Luís Mccann MD Unavailable Unavailable Luís Mccann MD Unavailable Unavailable Luís Mccann MD Unavailable Unavailable Luís Mccann MD Unavailable Unavailable Luís Mccann MD Unavailable Unavailable Luís Mccann MD Unavailable Unavailable Luís Mccann MD Unavailable Unavailable Luís Mccann MD Unavailable Unavailable Luís Mccann MD Unavailable Unavailable Luís Mccann MD Unavailable Unavailable Luís Mccann MD Unavailable Unavailable Luís Mccann MD Unavailable Unavailable Luís Mccann MD Unavailable Unavailable Luís Mccann MD Unavailable Unavailable Luís Mccann MD Unavailable Unavailable Luís Mccann MD Unavailable Unavailable Luís Mccann MD Unavailable Unavailable Luís Mccann MD Unavailable Unavailable Luís Mccann MD Unavailable Unavailable Luís Mccann MD Unavailable Unavailable Luís Mccann MD Unavailable Unavailable Luís Mccann MD Unavailable Unavailable Luís Mccann MD Unavailable Unavailable Luís Mccann MD Unavailable Unavailable Luís Mccann MD Unavailable Unavailable Luís Mccann MD Unavailable Unavailable Luís Mccann MD Unavailable Unavailable Luís Mccann MD Unavailable Unavailable Luís Mccann MD Unavailable Unavailable Luís Mccann MD Unavailable Unavailable Luís Mccann MD Unavailable Unavailable Luís Mccann MD Unavailable Unavailable Luís Mccann MD Unavailable Unavailable Rita, Theresa DO Unavailable Unavailable Rita, Theresa DO Unavailable Unavailable Rita, Theresa DO Unavailable Unavailable Rita, Theresa DO Unavailable Unavailable Rita, Theresa DO Unavailable Unavailable Rita, Theresa DO Unavailable Unavailable Rita, Theresa DO Unavailable Unavailable Rita, Theresa DO Unavailable Unavailable Rita, Theresa DO Unavailable Unavailable Rita, Theresa DO Unavailable Unavailable Rita, Theresa DO Unavailable Unavailable Rita, Theresa DO Unavailable Unavailable Rita, Theresa DO Unavailable Unavailable Rita, Theresa DO Unavailable Unavailable Rita, Theresa DO Unavailable Unavailable Rita, Theresa DO Unavailable Unavailable Rita, Theresa DO Unavailable Unavailable Rita, Theresa DO Unavailable Unavailable Rita, Theresa DO Unavailable Unavailable Rita, Theresa DO Unavailable Unavailable Rita, Theresa DO Unavailable Unavailable Rita, Theresa DO Unavailable Unavailable Rita, Theresa DO Unavailable Unavailable Rita, Theresa DO Unavailable Unavailable Rita, Theresa DO Unavailable Unavailable Rita, Theresa DO Unavailable Unavailable Rita, Theresa DO Unavailable Unavailable Rita, Theresa DO Unavailable Unavailable Rita, Theresa DO Unavailable Unavailable Rita, Theresa DO Unavailable Unavailable Rita, Theresa DO Unavailable Unavailable Rita, Theresa DO Unavailable Unavailable Rita, Theresa DO Unavailable Unavailable Rita, Theresa DO Unavailable Unavailable Rita, Theresa DO Unavailable Unavailable Rita, Theresa DO Unavailable Unavailable Rita, Theresa DO Unavailable Unavailable Rita, Theresa DO Unavailable Unavailable Rita, Theresa DO Unavailable Unavailable Rita, Theresa DO Unavailable Unavailable Rita, Theresa DO Unavailable Unavailable Rita, Theresa DO Unavailable Unavailable Rita, Theresa DO Unavailable Unavailable Rita, Theresa DO Unavailable Unavailable Rita, Theresa DO Unavailable Unavailable Rita, Theresa DO Unavailable Unavailable Rita, Theresa DO Unavailable Unavailable Rita, Theresa DO Unavailable Unavailable Rita, Theresa DO Unavailable Unavailable Rita, Theresa DO Unavailable Unavailable Rita, Theresa DO Unavailable Unavailable Rita, Theresa DO Unavailable Unavailable Rita, Theresa DO Unavailable Unavailable Rita, Theresa DO Unavailable Unavailable Rita, Theresa DO Unavailable Unavailable Rita, Theresa DO Unavailable Unavailable Rita, Theresa DO Unavailable Unavailable Rita, Theresa DO Unavailable Unavailable Rita, Theresa DO Unavailable Unavailable Rita, Theresa DO Unavailable Unavailable Rita, Theresa DO Unavailable Unavailable Rita, Theresa DO Unavailable Unavailable Rita, Theresa DO Unavailable Unavailable Rita, Theresa DO Unavailable Unavailable Rita, Theresa DO Unavailable Unavailable Rita, Theresa DO Unavailable Unavailable Rita, Theresa DO Unavailable Unavailable Rita, Theresa DO Unavailable Unavailable Rita, Theresa DO Unavailable Unavailable Rita, Theresa DO Unavailable Unavailable Rita, Theresa DO Unavailable Unavailable Rita, Theresa DO Unavailable Unavailable Rita, Theresa DO Unavailable Unavailable Rita, Theresa DO Unavailable Unavailable GENDZILAUREL, Manolo BINGHAM MD Unavailable Unavailable GENDZIELEARACELI, Manolo BINGHAM MD Unavailable Unavailable GENDZILAUREL, Manolo BINGHAM MD Unavailable Unavailable GENDZILAUREL, Manolo BINGHAM MD Unavailable Unavailable GENDZIELEARACELI, Manolo BINGHAM MD Unavailable Unavailable GENDZIELEARACELI, Manolo BINGHAM MD Unavailable Unavailable GENDZIELEARACELI, Manolo BINGHAM MD Unavailable Unavailable GENDZILAUREL, Manolo BINGHAM MD Unavailable Unavailable GENDZILAUREL, Manolo BINGHAM MD Unavailable Unavailable GENDZILAUREL, Manolo BINGHAM MD Unavailable Unavailable GENDZILAUREL, Manolo BINGHAM MD Unavailable Unavailable GENDZILAUREL, Manolo BINGHAM MD Unavailable Unavailable GENDZIALUREL, Manolo BINGHAM MD Unavailable Unavailable GENDZILAUREL, Manolo BINGHAM MD Unavailable Unavailable GENDZILAUREL, Manolo BINGHAM MD Unavailable Unavailable GENDZILAUREL, Manolo BINGHAM MD Unavailable Unavailable GENDZILAUREL, Manolo BINGHAM MD Unavailable Unavailable GENDZILAUERL, Manolo BINGHAM MD Unavailable Unavailable GENDZILAUREL, Manolo BINGHAM MD Unavailable Unavailable GENDZILAUREL, Manolo BINGHAM MD Unavailable Unavailable GENDZILAUREL, Manolo BINGHAM MD Unavailable Unavailable GENDZILAUREL, Manolo BINGHAM MD Unavailable Unavailable GENDZILAUREL, Manolo BINGHAM MD Unavailable Unavailable GENDZILAUREL, Manolo BINGHAM MD Unavailable Unavailable GENDZILAUREL, Manolo IBNGHAM MD Unavailable Unavailable GENDZIManolo BARRAGAN MD Unavailable Unavailable GENDZILAUREL, Manolo BINGHAM MD Unavailable Unavailable GENDZILAUREL, Manolo BINGHAM MD Unavailable Unavailable GENDZILAUREL, Manolo BINGHAM MD Unavailable Unavailable GENDZILAUREL, Manolo BINGHAM MD Unavailable Unavailable GENDZILAUREL, Manolo BINGHAM MD Unavailable Unavailable GENDZILAUREL, Manolo BINGHAM MD Unavailable Unavailable GENDZILAUREL, Manolo BINGHAM MD Unavailable Unavailable GENDZILAUREL, Manolo BINGHAM MD Unavailable Unavailable GENDZILAUREL, Manolo BINGHAM MD Unavailable Unavailable GENDZILAUREL, Manolo BINGHAM MD Unavailable Unavailable GENDZILAUREL, Manolo BINGHAM MD Unavailable Unavailable GENDZILAUREL, Manolo BINGHAM MD Unavailable Unavailable GENDZILAUREL, Manolo BINGHAM MD Unavailable Unavailable GENDZILAUREL, Manolo BINGHAM MD Unavailable Unavailable GENDZILAUREL, Manolo BINGHAM MD Unavailable Unavailable GENDZILAUREL, Manolo BINGHAM MD Unavailable Unavailable GENDZILAUREL, Manolo BINGHAM MD Unavailable Unavailable GENDZILAUREL, Manolo BINGHAM MD Unavailable Unavailable GENDZILAUREL, Manolo BINGHAM MD Unavailable Unavailable GENDZILAUREL, Manolo BINGHAM MD Unavailable Unavailable GENDZILAUREL, Manolo BINGHAM MD Unavailable Unavailable GENDZILAUREL, Manolo BINGHAM MD Unavailable Unavailable GENDZILAUREL, Manolo BINGHAM MD Unavailable Unavailable GENDZILAUREL, Manolo BINGHAM MD Unavailable Unavailable GENDZILAUREL, Manolo BINGHAM MD Unavailable Unavailable GENDZILAUREL, Manolo BINGHAM MD Unavailable Unavailable GENDZILAUREL, Manolo BINGHAM MD Unavailable Unavailable GENDZILAUREL, Manolo BINGHAM MD Unavailable Unavailable GENDZILAUREL, Manolo BINGHAM MD Unavailable Unavailable GENDZILAUREL, Manolo BINGHAM MD Unavailable Unavailable GENDZILAUREL, Manolo BINGHAM MD Unavailable Unavailable GENDZILAUREL, Manolo BINGHAM MD Unavailable Unavailable GENDZILAUREL, Manolo BINGHAM MD Unavailable Unavailable GENBRAXTON, Manolo BINGHAM MD Unavailable Unavailable GENDZIManolo BARRAGAN MD Unavailable Unavailable GENDZILAUREL, Manolo BINGHAM MD Unavailable Unavailable GENDManolo SMALLS MD Unavailable Unavailable GENDZIManolo BARRAGAN MD Unavailable Unavailable GENDZIManolo BARRAGAN MD Unavailable Unavailable GENDZIManolo BARRAGAN MD Unavailable Unavailable GENDZIManolo BARRAGAN MD Unavailable Unavailable GENDZILAUREL, Manolo BINGHAM MD Unavailable Unavailable GENDZILAUREL, Manolo BINGHAM MD Unavailable Unavailable GENDZIManolo BARRAGAN MD Unavailable Unavailable GENDManolo SMALLS MD Unavailable Unavailable GENDZIManolo BARRAGAN MD Unavailable Unavailable GENDZIELEWSKI, C ZACHERY MD Unavailable Unavailable GENDZIELEWSKI, C ZACHERY MD Unavailable Unavailable GENDZIELEWSKI, C ZACHERY MD Unavailable Unavailable GENDZIELEWSKI, C ZACHERY MD Unavailable Unavailable GENDZIELEWSKI, C ZACHERY MD Unavailable Unavailable GENDZIELEWSKI, C ZACHERY MD Unavailable Unavailable GENDZIELEWSKI, C ZACHERY MD Unavailable Unavailable GENDZIELEWSKI, C ZACHERY MD Unavailable Unavailable GENDZIELEWSKI, C ZACHERY MD Unavailable Unavailable GENDZIELEWSKI, C ZACHERY MD Unavailable Unavailable GENDZIELEWSKI, C ZACHERY MD Unavailable Unavailable GENDZIELEWSKI, C ZACHERY MD Unavailable Unavailable GENDZIELEWSKI, C ZACHERY MD Unavailable Unavailable Re-disclosure Warning The records that you are about to access may contain information from federally-assisted alcohol or drug abuse programs. If such information is present, then the following federally mandated warning applies: This information has been disclosed to you from records protected by federal confidentiality rules (42 CFR part 2). The federal rules prohibit you from making any further disclosure of this information unless further disclosure is expressly permitted by the written consent of the person to whom it pertains or as otherwise permitted by 42 CFR part 2. A general authorization for the release of medical or other information is NOT sufficient for this purpose. The Federal rules restrict any use of the information to criminally investigate or prosecute any alcohol or drug abuse patient.The records that you are about to access may contain highly sensitive health information, the redisclosure of which is protected by Article 27-F of the [facility] Public Health law. If you continue you may have access to information: Regarding HIV / AIDS; Provided by facilities licensed or operated by the [facility] Office of Mental Health; or Provided by the [facility] Office for People With Developmental Disabilities. If such information is present, then the following [facility] mandated warning applies: This information has been disclosed to you from confidential records which are protected by state law. State law prohibits you from making any further disclosure of this information without the specific written consent of the person to whom it pertains, or as otherwise permitted by law. Any unauthorized further disclosure in violation of state law may result in a fine or mcc sentence or both. A general authorization for the release of medical or other information is NOT sufficient authorization for further disc losure. Allergies and Adverse Reactions Type Description Substance Reaction Status Data Source(s ) Allergy to substance Allergy to substance Allergy to substance [facility] ([facility]) Allergy to substance Allergy to substance Allergy to substance [facility] ([facility]) Encounters Encounter Providers Location Date Indications Data Source(s ) Outpatient Attender: Theresa Bush 10/25 09:00:00 AM EDT [facility] ([facility] ) Outpatient Attender: ZACHERY [email or web address] 06/21/2020 12:00:00 AM EDT - 06/21/2020 01:41:[facility] Evans Mccann MD: [address] [place] [address] [phone], Ph. Attender: Evans Mccann MD [facility] 06/11/2020 12:00:00 AM EDT [facility] ([facility]) Evans Mccann MD: [address] [place] [address] [phone], Ph. Attender: Evans Mccann MD [facility] 05/17/2020 12:00:00 AM EST [facility] ([facility]) Evans Mccann MD: [address] [place] [address] [phone], Ph. Attender: Evans Mccann MD [facility] 05/17/2020 12:00:00 AM EST [facility] ([facility]) Outpatient Attender: Theresa Bush 04/17 07:00:00 AM EST [facility] ([facility] ) Outpatient Attender: Theresa Bush 01/22 01:00:00 PM EST [facility] ([facility] ) Outpatient Attender: ZACHERY [email or web address].EN 11/18/2019 12:00:00 AM EDT - 11/18/2019 12:32:21 PM EDT [facility] Practices Immunizations Vaccine Date Status Description Data Source(s) COVID-19, mRNA, LNP-S, PF, 100 mcg/0.5 mL dose 06/11/2020 10 :36:42 AM EDT completed 10.5 mL [facility] ([facility]) 207 06/11/2020 12:00:00 AM EDT completed <td I D="[id number]">Covid-19 (Moderna)</td><td>06/11/2020, 05/17/2020</td><td></td> [facility] COVID-19 VACCINE Moderna 06/11/2020 12:00:00 AM EDT completed [facility] Vaccine Series Complete: YESThis Data wa s Submitted to [facility] Via [employer]. COVID-19, mRNA, LNP-S, PF, 100 mcg/0.5 mL dose 05/18/2020 09 :26:30 AM EST completed .5 mL [facility] ([facility]) COVID-19, mRNA, LNP-S, PF, 100 mcg/0.5 mL dose 05/18/2020 09 :26:30 AM EST completed .5 mL [facility] ([facility]) COVID-19 VACCINE Moderna 05/18/2020 12:00:00 AM EST completed [facility] Vaccine Series Complete: NOThis Data was Submitted to [facility] Via [employer]. 05/17/2020 12:00:00 AM EST completed <td I D="[id number]">Covid-19 (Moderna)</td><td>06/11/2020, 05/17/2020</td><td></td> [facility] Influenza, injectable, MDCK, preservative free, delroy valent 01/23/2020 01:08:00 PM EST completed [facility] ([facility]) Medications Medication Brand Name Start Date Product Form Dose Route Admi nistrative Instructions Pharmacy Instructions Status Indications Reaction Description Data Source(s) 0.5 mg 11/28/2020 12:00:00 AM EDT tablet 15 TAKE ONE HALF TABLET BY MOUTH IN THE EVENING TAKE ONE HALF TABLET BY MOUTH IN THE EVENING SOLD: 11/28/2020 [facility] 90 mcg/actuation 10/25/2020 12:00:00 AM EDT HFA aerosol inha ler 8 INHALE TWO PUFFS BY MOUTH FOUR TIMES A DAY NEEDED INHALE TWO PUFFS BY MOUTH FOUR TIMES A DAY NEEDED SOLD: 10/25/2020 [facility] 90 mcg/actuation 10/25/2020 12:00:00 AM EDT HFA aerosol inha ler 8 INHALE TWO PUFFS BY MOUTH FOUR TIMES A DAY NEEDED INHALE TWO PUFFS BY MOUTH FOUR TIMES A DAY NEEDED SOLD: 12/10/2020 [facility] Albuterol 0.833 MG/ML / Ipratropium Brom zabrina 0.167 MG/ML Inhalation Solution 0.5 mg-3 mg(2.5 mg base)/3 mL IPRATROPIUM/ALBUTEROL SULFATE 08/14/2020 12:00:00 AM EDT solution for nebulization 90 USE 1 VIAL VIA NEBULIZER EVERY 6 HOURS NEEDED FOR SHORTNESS OF BREATH OR WHEEZING USE 1 VIAL VIA NEBULIZER EVERY 6 HOURS NEEDED FOR SHORTNESS OF BREATH OR WHEEZING SOLD: 08/14/2020 [facility] 3-0.03 mg 07/16/2020 12:00:00 AM EDT tablet 28 TAKE ONE TABLET BY MOUTH EVERY DAY TAKE ONE TABLET BY MOUTH EVERY DAY SOLD: 07/16/2020 [facility] 90 mcg/actuation 07/16/2020 12:00:00 AM EDT HFA aerosol inha ler 8 INHALE TWO PUFFS BY MOUTH FOUR TIMES A DAY NEEDED INHALE TWO PUFFS BY MOUTH FOUR TIMES A DAY NEEDED SOLD: 07/16/2020 [facility] 0.5 mg 07/16/2020 12:00:00 AM EDT tablet 15 TAKE ONE HALF TABLET BY MOUTH IN THE EVENING TAKE ONE HALF TABLET BY MOUTH IN THE EVENING SOLD: 07/23/2020 [facility] 0.1 mg 07/16/2020 12:00:00 AM EDT tablet 30 TAKE TWO TABLETS BY MOUTH EVERY DAY TAKE TWO TABLETS BY MOUTH EVERY DAY SOLD: 07/16/2020 [facility] Covid-19 vaccine, Unspecified 06/11/2020 12:00:00 AM EDT completed [facility] ([facility]) Medication administered onsite 0.1 mg 06/06/2020 12:00:00 AM EDT tablet 30 TAKE TWO TABLETS BY MOUTH EVERY DAY TAKE TWO TABLETS BY MOUTH EVERY DAY SOLD: 06/06/2020 [facility] 3-0.03 mg 06/06/2020 12:00:00 AM EDT tablet 28 TAKE ONE TABLET BY MOUTH EVERY DAY TAKE ONE TABLET BY MOUTH EVERY DAY SOLD: 06/06/2020 [facility] 0.5 mg 06/06/2020 12:00:00 AM EDT tablet 15 TAKE ONE HALF TABLET BY MOUTH IN THE EVENING TAKE ONE HALF TABLET BY MOUTH IN THE EVENING SOLD: 06/06/2020 [facility] drospirenone 3 MG / Ethinyl Estradiol 0. 03 MG Oral Tablet drospirenone-ethinyl estradiol (ANGELICA) 3-0.03 MG per tablet drospirenone-ethinyl estradiol (ANGELICA) 3-0.03 MG per tablet 06/05/2020 12:00:00 AM EDT 1 {tbl} Oral active Take 1 tablet by mouth daily [facility] Fludrocortisone 0.1 MG Oral Tablet fludrocortisone (FL ORINEF) 0.1 MG tablet fludrocortisone (FLORINEF) 0.1 MG tablet 06/05/2020 12:00:00 AM EDT 0.2 mg Oral active Take 2 tablets (0.2 mg total) by mouth daily [facility] Dexamethasone 0.5 MG Oral Tablet dexamethasone (DECADR ON) 0.5 MG tablet dexamethasone (DECADRON) 0.5 MG tablet 06/05/2020 12:00:00 AM EDT 0.25 mg Oral active Take 0.5 tablets (0. 25 mg total) by mouth every evening [facility] Covid-19 vaccine, Unspecified 05/18/2020 12:00:00 AM EST completed [facility] ([facility]) Medication administered onsite 25 mcg (1,000 unit) 01/24/2020 12:00:00 AM EST tablet 30 TAKE ONE TABLET BY MOUTH EVERY OTHER DAY TAKE ONE TABLET BY MOUTH EVERY OTHER DAY SOLD: 01/26/2020 [facility] Administration Of Flu Vaccine 01/23/2020 12:00:00 AM EST completed [facility] ([facility]) Medication administered onsite Cholecalciferol 1000 UNT Oral Tablet Vitamin D3 01/23/2020 12:00:00 A M EST ORAL active [facility] ([facility]) 90 mcg/actuation 01/04/2020 12:00:00 AM EDT HFA aerosol inha ler 8 INHALE TWO PUFFS BY MOUTH FOUR TIMES A DAY NEEDED INHALE TWO PUFFS BY MOUTH FOUR TIMES A DAY NEEDED SOLD: 03/21/2020 [facility] 90 mcg/actuation 01/04/2020 12:00:00 AM EDT HFA aerosol inha ler 8 INHALE TWO PUFFS BY MOUTH FOUR TIMES A DAY NEEDED INHALE TWO PUFFS BY MOUTH FOUR TIMES A DAY NEEDED SOLD: 01/04/2020 [facility] 90 mcg/actuation 01/04/2020 12:00:00 AM EDT HFA aerosol inha ler 8 INHALE TWO PUFFS BY MOUTH FOUR TIMES A DAY NEEDED INHALE TWO PUFFS BY MOUTH FOUR TIMES A DAY NEEDED SOLD: 02/11/2020 [facility] 0.5 mg-3 mg(2.5 mg base)/3 mL 08/30/2019 12:00:0 0 AM EDT solution for nebulization 90 USE 1 VIAL VIA NEBUL IZER EVERY 6 HOURS NEEDED FOR SHORTNESS OF BREATH OR WHEEZING USE 1 VIAL VIA NEBULIZER EVERY 6 HOURS A S NEEDED FOR SHORTNESS OF BREATH OR WHEEZING SOLD: 01/26/2020 [facility] montelukast 10 MG Oral Tablet montelukast (SINGULAIR) 10 MG tablet montelukast (SINGULAIR) 10 MG tablet 10 mg Oral aborted Take 10 mg by mouth as needed [facility] Insurance Providers Payer name Policy type / Coverage type Policy ID Covered green party ID Covered green party's relationship to gray Policy Gray Plan Information [facility] [id number] [place] [id number] Self [facility] [id number] Self [id number] Medicaid S [id number] S [id number] Managed Care - [facility] P [id number] S [id number] [facility] [id number] Self [id number] [facility] PLS Commercial [id number] Self [id number] [facility] PLS Commercial [id number] Self [id number] [facility] PLS Commercial [id number] Self [id number] [facility] PLS Commercial [id number] Self [id number] [facility] PLS Commercial [id number] Self [id number] [facility]/[facility] PLS Commercial [id number] Self [id number] [facility] PLS Commercial [id number] Self [id number] [facility] Care [facility] [id number] S [id number] [facility] [place] [address] Commercial [id number] Self [facility]/Ess PLS Commercial [id number] Self [id number] [facility] PLS Commercial [id number] Self [id number] Medicaid Medigap Part B [id number] Self [id number] Medicaid Medigap Part B [id number] Self [id number] Medicaid Medigap Part B [id number] Self [id number] 1 Medicaid Medigap Part B [id number] Self [id number] Medicaid Medigap Part B [id number] Self [id number] Medicaid Medigap Part B [id number] Self [id number] Medicaid Medigap Part B [id number] [id number] Self [id number] Medicaid Medigap Part B [id number] [id number] Self [id number] Medicaid Medigap Part B [id number] Self [id number] Medicare Natl Govt Servic Medicare Primary [id number] Self [id number] MEDICARE [id number] Kat [id number] A MEDICARE [id number] SP [id number] MEDICARE [id number] Kat [id number] MEDICARE [id number] SP [id number] A Medicare Natl Govt Servic Medicare Primary [id number] Self [id number] Medicare Natl Govt Servic Medicare Primary [id number] Self [id number] Medicare Natl Govt Servic Medicare Primary [id number] Self [id number] [facility] [id number] SP [id number] Medicare Natl Govt Servic Medicare Primary [id number] Self [id number] Medicare Natl Govt Serv Medicare Primary [id number] Self [id number] Medicare Natl Govt Serv Medicare Primary [id number] Self [id number] Medicare Natl Govt Serv Medicare Primary [id number] Self Medicare Natl [facility] [id number] Self [id number] MEDICARE [id number] [facility] [id number] [id number] Medicaid Medigap Part B [id number] 79.0 Self [id number] Medicaid Medigap Part B [id number] 79.0 Self [id number] Medicaid Medigap Part B 1 1 [id number] 79.0 Self 1 1 Medicaid Medigap Part B [id number] 79.0 Self [id number] Medicaid Medigap Part B [id number] Self [id number] Medicaid Medigap Part B [id number] 79.0 Self [id number] Medicaid Medigap Part B [id number] 79.0 Self [id number] Medicaid Medigap Part B [id number] 79.0 Self [id number] Medicaid Medigap Part B [id number] [id number] 79.0 Self [id number] Medicaid Medigap Part B [id number] [id number] 79.0 Self [id number] Medicaid Medigap Part B [id number] [id number] 79.0 Self [id number] Medicaid Medigap Part B [id number] 79.0 Self [id number] Medicaid Medigap Part B [id number] [id number] 79.0 Self [id number] Medicaid Medigap Part B [id number] 79.0 Self [id number] Medicaid Medigap Part B [id number] 79.0 Self [id number] Medicaid Medigap Part B [id number] 79.0 Self [id number] Medicaid Medigap Part B [id number] Self [id number] MEDICAID [id number] Kat [id number] MEDICAID [id number] xxxxxxxx [id number] [facility] Oriana/Ess PLS Commercial [id number] Self [id number] MEDICARE A [id number] Self [id number] Medicare C [id number] SELF [id number] Medicaid [facility] Healthcare S D [id number] SELF [id number] [facility] MEDICARE [id number] Kat [id number] [facility] MEDICARE [id number] xxxxxxxxx [id number] 1 [id number] [place] MED[place] [id number] SP [id number] X MEDICAID [id number] SP [id number] MEDICARE C [id number] S [id number] MEDICAID M [id number] S [id number] Medicare C [id number] SELF [id number] Ghi FHP Medigap Part B [id number] Self [id number] Medicaid Medigap Part B [id number] Self [id number] [facility]/Ess PLS Commercial [id number] Self [id number] [facility]Ess PLS Commercial [id number] Self [id number] MEDICAID -O/P [id number] MEDICARE PART A -O/P [id number] 18 [id number] MEDICAID -O/P EMERGENCY ROOM [id number] 18 [id number] MEDICAID -PHYSICIAN [id number] Ghi FHP Medigap Part B [id number] .39911.0 Self [id number] Medicaid Medigap Part B [id number] 79.0 Self [id number] [facility]/Ess PLS Commercial [id number] Self [id number] Ghi FHP Medigap Part B [id number] [id number] .18732.0 Self [id number] Medicaid Medigap Part B [id number] [id number] 79.0 Self [id number] Ghi FHP Medigap Part B [id number] 2.16.840.1.230999.3.227.99.4595 .52816.0 Self [id number] Medicaid Medigap Part B [id number] 79.0 Self [id number] MEDICARE C [id number] S [id number] A i P Medigap Part B [id number] .93110.0 Self [id number] Medicaid Medigap Part B [id number] [id number] 79.0 Self [id number] Ghi FHP Medigap Part B [id number] 2.16.840.1.970611.3.227.99.4595 .13798.0 Self [id number] Medicaid Medigap Part B [id number] 79.0 Self [id number] MEDICAID UNAVAILABLE UNAVAILA BLE Ghi FHP Medigap Part B [id number] .96409.0 Self [id number] Medicaid Medigap Part B [id number] [id number] 79.0 Self [id number] Ghi FHP Medigap Part B [id number] [id number] .94700.0 Self [id number] Medicaid Medigap Part B [id number] 79.0 Self [id number] MEDICAID [id number] SP [id number] [place] MEDICARE PART B C [id number] S [id number] NORIDIAN JE PART B C [id number] S [id number] [facility] Oriana/Ess PLS Commercial [id number] Self [id number] [facility] Ori[facility]/Ess PLS Commercial [phone] [id number] [phone] Self [id number] Ghi FHP Medigap Part B [id number] Self Family Health Plus Medicaid Medigap Part B [id number] Self [id number] 1 SELF PAY ONLY SELF PAY ONLY [id number] Self SELF PAY ONLY SELF PAY ONLY SELF PAY ONLY [id number] Self SELF PAY ONLY SELF PAY ONLY [id number] SP [id number] [facility] O [id number] S [id number] SELF PAY ONLY UNAVAILABLE UNAV AILABLE SELF PAY UNAVAILABLE SP [facility] [id number] SP [id number] [facility] P [id number] S [id number] Managed Care - [facility] P UNAVAILABLE S UNAVAILABLE SELF PAY [id number] SP [id number] [facility] [id number] SP [id number] Problems, Conditions, and Diagnoses Code Display Name Description Problem Type Effective Dates Data Source(s) 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 s Surgeries/Procedures Procedure Description Date Indications Data Source(s) OFFICE OUTPATIENT VISIT 25 MINUTES 10/25/2020 12:00:00 AM EDT [facility] ([facility]) LIPID PANEL EXTENDED @ <td>LIPID PANEL EXTENDED @</td><td>Routine</td><td>06/21/2020 1:50 PM EDT</td><td> Class 1 obesity due to excess calories without serious comorbidity with body mass index (BMI) of 30.0 to 30.9 in adult</td><td> </td> 06/21/2020 05:50:00 PM EDT Class 1 obesity due to excess calories w ithout serious comorbidity with body mass index (BMI) of 30.0 to 30.9 in adult [facility] Class 1 obesity due to excess calories w ithout serious comorbidity with body mass index (BMI) of 30.0 to 30.9 in adult THYROID STIMULATING HORMONE TSH <td>TSH</td><td>Routin e</td><td>06/21/2020 1:50 PM EDT</td><td> Class 1 obesity due to excess calories without serious comorbidity with body mass index (BMI) of 30.0 to 30.9 in adult</td><td> </td> 06/21/2020 05:50:00 PM EDT Class 1 obesity due to excess calories w ithout serious comorbidity with body mass index (BMI) of 30.0 to 30.9 in adult [facility] Class 1 obesity due to excess calories w ithout serious comorbidity with body mass index (BMI) of 30.0 to 30.9 in adult BASIC METABOLIC PANEL CALCIUM TOTAL <td>BASIC METABOLI C PANEL</td><td>Routine</td><td>06/21/2020 1:50 PM EDT</td><td> 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), simple virilizing</td><td> </td> 06/21/2020 05:50:00 PM EDT Congenital adrenal hyperplasia due to 21 -hydroxylase deficiency (21-OH CAH), simple virilizing [facility] Congenital adrenal hyperplasia due to 21 -hydroxylase deficiency (21-OH CAH), simple virilizing Results ID Date Data Source [id number] 06/30/2020 02:01:04 PM EDT [facility] Name Value Range Interpretation Code Description Data Federica rce(s) Supporting Document(s) 17 OH PROGESTERONE 3673.92 H [facility] Reference range: <=206.00Unit: ng/dL INT ERPRETIVE INFORMATION for 17- Hydroxyprogesterone in females: Follicular 15 to 70 ng/dL Luteal 35 to 290 ng/dL REFERENCE INTERVAL: 17- Hydroxyprogesterone Qnt, HPLC-MS/MS Access complete set of age- and/or gender- specific reference intervals for this test in the [facility] Test Directory ([employer]). This test was developed and its performance characteristics determined by [facility]. It has not been cleared or approved by the [place] Food and Drug Administration. This test was performed in a CLIA certified laboratory and is intended for clinical purposes. Performed By: [facility] [address] [place] [id number] Directory Compiler: Zofia Webb MD ID Date Data Source [id number] 06/21/2020 08:56:44 PM EDT [facility] Name Value Range Interpretation Code Description Data Federica rce(s) Supporting Document(s) SODIUM 137 mmol/L (136-145) [facility] POTASSIUM 5.0 mmol/L (3.6-5.2) [facility] CHLORIDE 107 mmol/L (100-108) [facility] CO2 19 mmol/L (22-31) L [facility] ANION GAP 11 mmol/L (7-16) [facility] UREA NITROGEN 9 mg/dL (7-24) [facility] CREATININE 1.01 mg/dL (0.60-1.00) H [facility] BUN/CREAT RATIO 8.9 RATIO (10.0-20.0) L [facility] GLUCOSE 67 mg/dL (70-99) L [facility] CALCIUM 9.0 mg/dL (8.4-10.2) [facility] GFR >60 ml/min/1.73m2 (>59) [facility] GFR ( AMER) >60 ml/min/1.73m2 (>59) [facility] GFR INTERPRETATION [facility] --NORMAL KIDNEY FUNCTION OR MILD DISEASE - GFR >OR= 60CHRONIC KIDNEY DISEASE - GFR 15 - 59RENAL FAILURE - GFR <15 Est. GFR calculation based on the MDRDstudy equation, which assumes a steadystate for creatinine. Est. GFR should notbe used for medication dosing. ID Date Data Source [id number] 06/21/2020 08:56:44 PM EDT [facility] Name Value Range Interpretation Code Description Data Federica rce(s) Supporting Document(s) APPEARANCE (CLEAR) [facility] CHOLESTEROL @ 147 mg/dL (0-200) [facility] TRIGLYCERIDE @ 153 mg/dL (30-200) [facility] HDL CHOLESTEROL @ 40 mg/dL (>40) L [facility] PER NCEP ATP III GUIDELINES:RESULTS LOWE R THAN 40 MG/DL ARE SUGGESTIVEOF INCREASED RISK FOR CORONARY ARTERYDISEASE. RESULTS > OR = TO 60 MG/DL ARECONSIDERED A NEGATIVE RISK FACTOR. CHOL/HDL RATIO 3.7 RATIO [facility] INTERPRETATION OF CHOL-HDL RATIO CHD RISK FEMALE MALEVERY HIGH >8.3 >14.3HIGH 5.6- 8.3 6.7- 14.3AVERAGE 3.7- 5.6 4.0- 6.7BELOW AVERAGE 2.5- 3.7 2.7- 4.0PROTECTED <2.5 <2.7 DIRECT LDL @ 84 mg/dL (<130) [facility] clarissa French MARY ANN PER NCEP ATP III GUIDELINES: OPTIMAL < 100 NEAR OPTIMAL 100 - 129BORDERLINE HIGH 130 - 159 HIGH 160 - 189 VERY HIGH > 189 VLDL (CALC) 23 mg/dL (0-30) Lab [facility] ID Date Data Source [id number] 06/21/2020 08:56:44 PM EDT Lab [facility] Name Value Range Interpretation Code Description Data Federica rce(s) Supporting Document(s) TSH,ULTRASENSITIVE @ 1.190 mIU/L (0.360-4.170) Lab [facility] ID Date Data Source [id number] 01/23/2020 01:58:00 PM EST [facility] ([facility]) Name Value Range Interpretation Code Description Data Federica rce(s) Supporting Document(s) Thyrotropin [Units/volume] in Serum or Plasma by Detec tion limit <= 0.05 mIU/L 0.72 uIU/mL 0.36-3.74 [facility] ([facility] ) ID Date Data Source [id number] 01/23/2020 01:58:00 PM EST [facility] ([facility]) Name Value Range Interpretation Code Description Data Federica rce(s) Supporting Document(s) Cholesterol [Mass/volume] in Serum or Plasma 156 mg/dL 131-200 [facility] ([facility]) Cholesterol in HDL [Mass/volume] in Serum or Plasma 36 mg/dL 35-60 [facility] ([facility]) Cholesterol in LDL [Mass/volume] in Serum or Plasma by calcu lation 91 CALC 50-159 [facility] ([facility]) Triglyceride [Mass/volume] in Serum or Plasma 143 mg/dL 30-150 [facility] ([facility]) ID Date Data Source [id number] 01/23/2020 01:58:00 PM EST [facility] ([facility]) Name Value Range Interpretation Code Description Data Federica rce(s) Supporting Document(s) Glucose [Mass/volume] in Serum or Plasma 92 mg/dL 74-99 [facility] ([facility]) 100-125 mg/dL PRE-DIABETES/FASTING >126 mg/dL DIABETES/FASTING Urea nitrogen [Mass/volume] in Serum or Plasma 11 mg/dL 7-18 [facility] ([facility]) Creatinine 0.9 mg/dL 0.6-1.3 [facility] ([facility]) Chloride [Moles/volume] in Serum or Plasma 103 meq/L 98-107 [facility] ([facility]) Sodium [Moles/volume] in Serum or Plasma 139 meq/L 136-145 [facility] ([facility]) Potassium [Moles/volume] in Serum or Plasma 4.7 meq/L 3.5-5.1 [facility] ([facility]) Calcium [Mass/volume] in Serum or Plasma 9.2 mg/dL 8.5-10.1 [facility] ([facility]) Carbon dioxide, total [Moles/volume] in Serum or Plasma 27 meq/L 21 -32 [facility] ([facility]) Alkaline phosphatase isoenzyme [Units/volume] in Serum or Pl asma 90 mg/dL 46-116 [facility] ([facility]) Alanine aminotransferase [Enzymatic activity/volume] in Seru m or Plasma 23 U/L 12-78 [facility] ([facility]) Aspartate aminotransferase [Enzymatic activity/volume] in Serum or Plasma 19 U/L 15-37 [facility] ([facility] ) Total Bilirubin 0.6 mg/dL 0.2-1.0 [facility] ([facility]) A/G Ratio 1.05 CALC 1.00-1.90 [facility]) Albumin [Mass/volume] in Serum or Plasma 4.1 g/dL 3.4-5.0 [facility] ([facility]) Proteinase 3 Ab [Units/volume] in Serum 8.0 g/dL 6.4-8.2 [facility] ([facility]) Glomerular filtration rate/1.73 sq M pre dicted among non-blacks [Volume Rate/Area] in Serum or Plasma by Creatinine-based formula (MDRD) Laboratory test result [facility] ([facility] ) Glomerular filtration rate/1.73 sq M pre dicted among blacks [Volume Rate/Area] in Serum or Plasma by Creatinine-based formula (MDRD) Laboratory test result [facility] ([facility]) <content>CHRONIC KIDNEY DISEASE STAGING PER NKF</content>
<content></content>
<content>STAGE I & II GFR >= 60 NORMAL TO MILDLY DECREASED</content>
<content>STAGE III GFR 30-59 MODERATELY DECREASED</content>
<content>STAGE IV GFR 15-29 SEVERELY DECREASED</content>
<content>STAGE V GFR <15 VERY LITTLE GFR LEFT</content>
<content>ESRD GFR <15 ON TECHNICAL INSTRUCTOR</content>
<content></content> ID Date Data Source [id number] 01/23/2020 01:58:00 PM EST [facility] ([facility]) Name Value Range Interpretation Code Description Data Federica rce(s) Supporting Document(s) Leukocytes [#/volume] in Blood by Automated count 7.2 x10*3/UL 4.1-10 .9 [facility] ([facility]) Erythrocytes [#/volume] in Blood by Automated count 5.42 x10*6/UL 4.2 0-6.30 [facility] ([facility]) Hematocrit [Volume Fraction] of Blood by Automated count 48.2 % 3 7.0-51.0 [facility] ([facility]) Hemoglobin [Mass/volume] in Blood 16.6 g/dL 12.0-18.0 [facility] ([facility]) MCV 88.8 fL 80.0-97.0 [facility] MCH 30.6 pg 26.0-32.0 [facility] Erythrocyte distribution width [Ratio] by Automated count 13.6 % 11.6-13.7 [facility] ([facility]) Platelets [#/volume] in Blood by Automated count 309 x10*3/UL 140-440 [facility] ([facility]) MCHC 34.4 g/dL 31.0-38.0 [facility] MPV 8.8 FL 7.8-11.0 [facility] Lymph % 28.4 % 10.0-58.5 [facility]) Mid % 6.5 % 1.7-9.3 [facility] Mid # 0.5 x10*3/UL 0.1-0.6 [facility] ([facility]) Lymph # 2.0 x10*3/UL 0.6-4.1 [facility] ([facility]) Neut % 65.1 % 37.0-92.0 [facility] Neut # 4.7 x10*3/UL 2.0-7.8 [facility] ([facility]) Procedure Social History Code Duration Value Status Description Data Source(s ) Alcohol intake 06/21/2020 12:00:00 AM EDT Yes completed [facility] Smoking 06/21/2020 12:00:00 AM EDT Never smoker completed Never s moker [facility] Vital Signs ID Date Data Source UNK Name Value Range Interpretation Code Description Data Source(s) Heart rate 69 /min 69 /min [facility] ([facility]) Systolic blood pressure 128 mm[Hg] 128 mm[Hg] M [facility] ([facility]) Body height 67.75 [in_i] 67.75 [in_i] [facility] ([facility]) 5'7.75" Body weight 197.12 [lb_av] 197.12 [lb_av] [facility] T ([facility]) Oxygen saturation in Arterial blood by Pulse oximetry 97 % 97 % [facility] Air Body mass index (BMI) [Ratio] 30.2 kg/m2 30.2 k g/m2 [facility] ([facility]) Diastolic blood pressure 68 mm[Hg] 68 mm[Hg] [facility] ([facility]) Systolic blood pressure 108 mm[Hg] 108 mm[Hg] [facility] Diastolic blood pressure 72 mm[Hg] 72 mm[Hg] [facility] Heart rate 84 /min 84 /min [facility] Respiratory rate 18 /min 18 /min [facility] Body height 172.7 cm 172.7 cm [facility] Body weight 91.173 kg 91.173 kg [facility] Body mass index (BMI) [Ratio] 30.56 kg/m2 30.56 kg/m2 [facility] Systolic blood pressure 104 mm[Hg] 104 mm[Hg] [facility] ([facility]) Diastolic blood pressure 68 mm[Hg] 68 mm[Hg] [facility] ([facility]) Body height 67.75 [in_i] 67.75 [in_i] [facility] ([facility]) 5'7.75" Body weight 206.00 [lb_av] 206.00 [lb_av] [facility] Body mass index (BMI) [Ratio] 31.6 kg/m2 31.6 k g/m2 [facility] ([facility]) Heart rate 92 /min 92 /min [facility] ([facility]) Body height 67.75 [in_i] 67.75 [in_i] [facility] ([facility]) 5'7.75" Diastolic blood pressure 70 mm[Hg] 70 mm[Hg] [facility] ([facility]) Body weight 204.00 [lb_av] 204.00 [lb_av] [facility] Oxygen saturation in Arterial blood by Pulse oximetry 96 % 96 % [facility] ([facility]) RM Air Systolic blood pressure 102 mm[Hg] 102 mm[Hg] [facility] ([facility]) Body mass index (BMI) [Ratio] 31.2 kg/m2 31.2 k g/m2 [facility] ([facility]) Patient Treatment Plan of Care Planned Activity Planned Date Details Description Data Source (s) Dexamethasone 0.5 MG Oral Tablet 06/05/2020 12:00:00 AM EDT [facility] drospirenone 3 MG / Ethinyl Estradiol 0.03 MG Oral Tab let 06/05/2020 12:00:00 AM EDT [facility] Fludrocortisone 0.1 MG Oral Tablet 06/05/2020 12:00:00 AM EDT [facility] montelukast 10 MG Oral Tablet [facility]
[2021-01-05] MEDS ORDERED: DEXA5TA (05:35)
[2021-01-05] MEDS ORDERED: dexameTHASONE 20MG/5ML VIAL (J1100 PER 1MG) IV ONE (06:05)
--- OUTSIDE RECORDS SUMMARY | 2021-01-05 06:32 | CCD ---
Author Author [facility] Organization [facility] Address Unknown Phone Unavailable Care Team Providers Care Truck Despatcher Name Role Phone Luís Mccann MD Unavailable [...] Unavailable Luís Mccann MD Unavailable Unavailable Luís Mcacnn MD Unavailable Unavailable Luís Mccann MD Unavailable Unavailable Luís Mccann MD Unavailable Unavailable Lusí Mccann MD Unavailable Unavailable Luís Mccann MD [...] is protected by Article 27-F of the [facility] Public Health law. If you continue you may have access to information: Regarding HIV / AIDS; Provided by facilities licensed or operated by the [facility] Office of Mental Health; or Provided by the [facility] Office for People With Developmental Disabilities. If such information is present, then the following [facility] mandated warning applies: This information has [...] law may result in a fine or chcf sentence or both. A general authorization for the release of medical or other information is NOT sufficient authorization for further disc losure. Allergies and Adverse Reactions Type Description Substance Reaction Status Data Source(s ) Allergy to substance Allergy to substance Allergy to substance [facility] ([facility]) Allergy to substance Allergy to substance Allergy to substance [facility] ([facility]) Encounters Encounter Providers Location Date Indications Data Source(s ) Outpatient Attender: Theresa Bush 10/25 09:00:00 AM EDT [facility] ([facility] ) Outpatient Attender: ZACHERY MUJICA-MOZOILA.EN 06/21/2020 12:00:00 AM EDT - 06/21/2020 01:41:[facility] Evans Mccann MD: [address] [place] [address] [phone], Ph. Attender: Evans Mccann MD [facility] Medical 06/11/2020 12:00:00 AM EDT [facility] ([facility]) Evans Mccann MD: [address] [place] [address] [phone], Ph. Attender: Evans Mccann MD [facility] Medical 05/17/2020 12:00:00 AM EST [facility] ([facility]) Evans Mccann MD: [address] [place] [address] [phone], Ph. Attender: Evans Mccann MD [facility] Medical 05/17/2020 12:00:00 AM EST [facility] ([facility]) Outpatient Attender: Theresa Bush 04/17 07:00:00 AM EST [facility] ([facility] ) Outpatient Attender: Theresa Bush 01/22 01:00:00 PM EST [facility] ([facility] ) Outpatient Attender: ZACHERY MUJICA-MOCAM.EN 11/18/2019 12:00:00 AM EDT - 11/18/2019 12:32:21 PM EDT [facility] Practices Immunizations Vaccine Date Status Description Data Source(s) COVID-19, mRNA, LNP-S, PF, 100 mcg/0.5 mL dose 06/11/2020 10 :36:42 AM EDT completed 10.5 mL [facility] ([facility]) 207 06/11/2020 12:00:00 AM EDT completed <td I D="[id number]">Covid-19 (Moderna)</td><td>06/11/2020, 05/17/2020</td><td></td> [facility] COVID-19 VACCINE Moderna 06/11/2020 12:00:00 AM EDT completed [facility] Vaccine Series Complete: YESThis Data wa s Submitted to [facility] [employer]. COVID-19, mRNA, LNP-S, PF, 100 mcg/0.5 mL dose 05/18/2020 09 :26:30 AM EST completed .5 mL [facility] ([facility]) COVID-19, mRNA, LNP-S, PF, 100 mcg/0.5 mL dose 05/18/2020 09 :26:30 AM EST completed .5 mL [facility] ([facility]) COVID-19 VACCINE Moderna 05/18/2020 12:00:00 AM EST completed [facility] Vaccine Series Complete: NOThis Data was Submitted to [facility] [employer]. 05/17/2020 12:00:00 AM EST completed <td I D="[id number]">Covid-19 (Moderna)</td><td>06/11/2020, 05/17/2020</td><td></td> [facility] Influenza, injectable, MDCK, preservative free, delroy valent 01/23/2020 01:08:00 PM EST completed [facility] ([facility]) Medications Medication Brand Name Start [...] TIMES A DAY NEEDED SOLD: 07/16/2020 Elizabeth Rmairez gs 0.5 mg 07/16/2020 12:00:00 AM EDT [...] BY MOUTH IN THE EVENING SOLD: 06/06/2020 [employer] drospirenone 3 MG / Ethinyl Estradiol 0. 03 MG Oral Tablet drospirenone-ethinyl estradiol (ANGELICA) 3-0.03 MG per tablet drospirenone-ethinyl estradiol (ANGELICA) 3-0.03 MG per tablet 06/05/2020 12:00:00 AM EDT 1 {tbl} Oral active Take 1 tablet by mouth daily [facility] Fludrocortisone 0.1 MG Oral Tablet fludrocortisone (FL ORINEF) 0.1 MG tablet fludrocortisone (FLORINEF) 0.1 MG tablet 06/05/2020 12:00:00 AM EDT 0.2 mg Oral active Take 2 tablets (0.2 mg total) by mouth daily [facility] Dexamethasone 0.5 MG Oral Tablet dexamethasone (DECADR ON) 0.5 MG tablet dexamethasone (DECADRON) 0.5 MG tablet 06/05/2020 12:00:00 AM EDT 0.25 mg Oral active Take 0.5 tablets (0. 25 mg total) by mouth every evening [facility] Covid-19 vaccine, Unspecified 05/18/2020 12:00:00 AM EST completed [facility] ([facility]) Medication administered onsite 25 mcg (1,000 unit) 01/24/2020 12:00:00 AM EST tablet 30 TAKE ONE TABLET BY MOUTH EVERY OTHER DAY TAKE ONE TABLET BY MOUTH EVERY OTHER DAY SOLD: 01/26/2020 [facility] Of Flu Vaccine 01/23/2020 12:00:00 AM EST completed [facility] ([facility]) Medication administered onsite Cholecalciferol 1000 [...] Take 10 mg by mouth as needed [facility] Insurance Providers Payer name Policy type / Coverage type Policy ID Covered republican ID Covered republican's relationship to gray Policy Gray Plan Information [facility] [place] [id number] Self [facility] Skuid [id number] Self [id number] Medicaid S [id number] S [id number] Managed Care - [facility] P [id number] S [id number] [facility] [id number] Self [id number] Formerly [facility] Oriana/Ess PLS Commercial [id number] Self [id number] Formerly [facility] Oriana/Ess PLS Commercial [id number] Self [id number] Formerly [facility] Oriana/Ess PLS Commercial [id number] Self [id number] Formerly [facility] Oriana/Ess PLS Commercial [id number] Self [id number] Formerly [facility] Oriana/Ess PLS Commercial [id number] Self [id number] Formerly [facility] Oriana/Ess PLS Commercial [id number] Self [id number] Formerly [facility] Oriana/Ess PLS Commercial [id number] Self [id number] [facility] Care [facility] [id number] S [id number] Formerly [facility] Medicaid [address] Commercial [id number] Self Formerly [facility] Oriana/Ess PLS Commercial [id number] Self [id number] Formerly [facility] Oriana/Ess PLS Commercial [id number] Self [id number] Medicaid Medigap Part B [id number] [id number] 79.0 Self [id number] Medicaid Medigap Part B [id number] Self [id number] Medicaid Medigap Part B [id number] Self 1 1 Medicaid Medigap Part B [id number] [id number] 79.0 Self [id number] Medicaid Medigap Part B [id number] [id number] 79.0 Self [id number] Medicaid Medigap Part B [id number] [id number] 79.0 Self [id number] Medicaid Medigap Part B [id number] [id number] 79.0 Self [id number] Medicaid Medigap Part B [id number] [id number] 79.0 Self [id number] Medicaid Medigap Part B [id number] 79.0 Self [id number] Medicare Natl Govt Servic Medicare Primary [id number] Self [id number] MEDICARE [id number] Kat [id number] A MEDICARE [id number] SP [id number] Q87 MEDICARE [id number] Kat [id number] Q87 MEDICARE [id number] SP [id number] A Medicare Natl Govt Servic Medicare Primary [id number] Self [id number] Medicare Natl Govt Servic Medicare Primary [id number] Self [id number] Medicare Natl Govt Servic Medicare Primary [id number] Self [id number] [facility] [id number] SP [id number] Medicare Natl Govt Servic Medicare Primary [id number] Self [id number] Medicare Natl Govt Serv Medicare Primary [id number]595.43514.0 Self [id number] Medicare Natl Govt Serv Medicare Primary [id number] Self [id number] Medicare Natl Govt Serv Medicare Primary [id number]72.0 Self [facility] [id number].4595.78472.0 Self [id number] MEDICARE [id number] [facility] [id number] Q87 Medicaid Medigap Part B [id number] 2.16840.1.404058.3.227.99.4595.163 79.0 Self [id number] Medicaid Medigap Part B [id number] 2.16.840.1.345290.3.227.99.4595.163 79.0 Self [id number] Medicaid Medigap Part B 1 1 2.16.840.1.122603.3.227.99.4595.163 79.0 Self 1 1 Medicaid Medigap Part B [id number] 2.16840.1.786340.3.227.99.4595.163 79.0 Self [id number] Medicaid Medigap Part B [id number] Self [id number] Medicaid Medigap Part B [id number] 2.16840.1.318979.3.227.99.4595.163 79.0 Self [id number] Medicaid Medigap Part B [id number] 2.16840.1.885227.3.227.99.4595.163 79.0 Self [id number] Medicaid Medigap Part B [id number] 2.16.840.1.386820.3.227.99.4595.163 79.0 Self [id number] Medicaid Medigap Part B [id number] 2.16.840.1.460565.3.227.99.4595.163 79.0 Self [id number] Medicaid Medigap Part B [id number] 2.16.840.1.272968.3.227.99.4595.163 79.0 Self [id number] Medicaid Medigap Part B [id number] 2.16.840.1.609153.3.227.99.4595.163 79.0 Self [id number] Medicaid Medigap Part B [id number] 2.16.840.1.821801.3.227.99.4595.163 79.0 Self [id number] Medicaid Medigap Part B [id number] 2.16.840.1.049477.3.227.99.4595.163 79.0 Self [id number] Medicaid Medigap Part B [id number] 2.16.840.1.543058.3.227.99.4595.163 79.0 Self [id number] Medicaid Medigap Part B [id number] 2.16.840.1.368444.3.227.99.4595.163 79.0 Self [id number] Medicaid Medigap Part B [id number] 2.16.840.1.920626.3.227.99.4595.163 79.0 Self [id number] Medicaid Medigap Part B [id number] Self [id number] MEDICAID [id number] Kat [id number] MEDICAID [id number] xxxxxxxx [id number] [facility] Oriana/Ess PLS Commercial [id number] Self [id number] MEDICARE A [id number] Self [id number] A Medicare C [id number] SELF [id number] Q87 Medicaid [facility] Healthcare S D [id number] SELF [id number] [facility] MEDICARE [id number] Kat [id number] [facility] MEDICARE [id number] xxxxxxxxx [id number] [place] [id number] SP [id number] X MEDICAID [id number] SP [id number] MEDICARE C [id number] S [id number] MEDICAID M [id number] S [id number] Medicare C [id number] SELF [id number] Q87 Ghi FHP Medigap Part B [id number] Self [id number] Medicaid Medigap Part B [id number] Self [id number] [facility] Oriana/Ess PLS Commercial [id number] Self [id number] Formerly [facility] Oriana/Ess PLS Commercial [id number] Self [id number] MEDICAID -O/P [id number] MEDICARE PART A -O/P [id number] 18 [id number] MEDICAID -O/P EMERGENCY ROOM [id number] MEDICAID -PHYSICIAN [id number] Ghi FHP Medigap Part B [id number]9.4595 .24430.0 Self [id number] Medicaid Medigap Part B [id number] 2.16.84[id number] 79.0 Self [id number] [facility] Oriana/Ess PLS Commercial [id number]9.4595.82658.0 Self [id number] Ghi FHP Medigap Part B [id number] 2.16.840.1.218581.3.227.99.4595 .02778.0 Self [id number] Medicaid Medigap Part B [id number] 2.16.84[id number] 79.0 Self [id number] Ghi FHP Medigap Part B [id number] 2.16.840.1.931127.3.227.99.4595 .63047.0 Self [id number] Medicaid Medigap Part B [id number] 2.16.840.1.444386.3.227.99.4595.163 79.0 Self [id number] MEDICARE C [id number] S [id number] A i P Medigap Part B [id number] 2.16.840.1.946709.3.227.99.4595 .79417.0 Self [id number] Medicaid Medigap Part B [id number] 2.16.84[id number] 79.0 Self [id number] Ghi FHP Medigap Part B [id number] 2.16.840.1.517620.3.227.99.4595 .99396.0 Self [id number] Medicaid Medigap Part B [id number] [id number] 79.0 Self [id number] MEDICAID UNAVAILABLE UNAVAILA BLE Ghi FHP Medigap Part B [id number] 2.16.840.1.454375.3.227.99.4595 .33042.0 Self [id number] Medicaid Medigap Part B [id number] [id number] 79.0 Self [id number] Ghi FHP Medigap Part B [id number] 2.16.840.1.694941.3.227.99.4595 .69460.0 Self [id number] Medicaid Medigap Part B [id number] [id number] 79.0 Self [id number] MEDICAID [id number] SP [id number] CAHABA MEDICARE PART B C [id number] S [id number] NORIDIAN JE PART B C [id number] S [id number] Formerly [facility] [employer]ana/Ess PLS Commercial [id number] Self [id number] Formerly [facility] Oriana/Ess PLS Commercial [id number] Self [id number] Ghi FHP Medigap Part B [id number] Self Family Health Plus Medicaid Medigap Part B [id number] Self 1 1 SELF PAY ONLY SELF PAY ONLY [id number] Self SELF PAY ONLY SELF PAY ONLY SELF PAY ONLY [id number] Self SELF PAY ONLY SELF PAY ONLY [id number] SP [id number] [facility] O [id number] S [id number] SELF PAY ONLY UNAVAILABLE UNAV AILABLE SELF PAY UNAVAILABLE SP [id number] SP [id number] [facility] P [id number] S [id number] Managed Care - [facility] P UNAVAILABLE S UNAVAILABLE SELF PAY [id number] SP [id number] 900 [facility] [id number] SP [id number] Problems, Conditions, and Diagnoses Code Display Name Description Problem Type Effective Dates Data Source(s) 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 Congenital adrenogenital disorders assoc Diagnosis 06/21/2020 12:50:34 PM EDT [facility] Z68.30 Body mass index (BMI) 30.0-30.9, adult B caleb mass index (BMI)30.0-30.9, adult Diagnosis 06/21/2020 12:50:34 PM EDT [facility] E66.09 Other obesity due to excess calories Oth er obesity due to excess calories Diagnosis 06/21/2020 12:50:34 PM EDT [facility] 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, unspecified Adrenogenita l disorder, unspecified Diagnosis 11/18/2019 11:50:37 AM EDT [facility] s Surgeries/Procedures Procedure Description Date Indications Data Source(s) OFFICE OUTPATIENT VISIT 25 MINUTES 10/25/2020 12:00:00 AM EDT DAMON ([facility]) LIPID PANEL EXTENDED @ <td>LIPID PANEL EXTENDED @</td><td>Routine</td><td>06/21/2020 1:50 PM EDT</td><td> Class 1 obesity due to excess calories without serious comorbidity with body mass index (BMI) of 30.0 to 30.9 in adult</td><td> </td> 06/21/2020 05:50:00 PM EDT Class 1 obesity due to excess calories w ithout serious comorbidity with body mass index (BMI) of 30.0 to 30.9 in adult [facility] Class 1 obesity due to excess calories [...] (BMI) of 30.0 to 30.9 in adult [facility] Class 1 obesity due to excess calories w ithout serious comorbidity with body mass index (BMI) of 30.0 to 30.9 in adult BASIC METABOLIC PANEL CALCIUM TOTAL <td>BASIC METABOLI C PANEL</td><td>Routine</td><td>06/21/2020 1:50 PM EDT</td><td> 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 This test was developed and its performance characteristics determined by [facility] It has not been cleared or approved by the [place] Food and Drug Administration. This test was performed in a CLIA certified laboratory and is intended for clinical purposes. Performed By: [facility]? [address] [place] [address] Compliance Technician: Zofia Webb MD ID Date Data Source [id number] 06/21/2020 08:56:44 PM EDT [facility] Name Value Range Interpretation Code Description Data Federica rce(s) Supporting Document(s) SODIUM 137 mmol/L (136-145) [facility] POTASSIUM 5.0 mmol/L (3.6-5.2) [facility] CHLORIDE 107 mmol/L (100-108) [facility] CO2 19 mmol/L (22-31) L [facility] ANION GAP 11 mmol/L (7-16) [facility] UREA NITROGEN 9 mg/dL (7-24) [facility] CREATININE 1.01 mg/dL (0.60-1.00) H [facility] BUN/CREAT RATIO 8.9 RATIO (10.0-20.0) L [facility] GLUCOSE 67 mg/dL (70-99) L [facility] CALCIUM 9.0 mg/dL (8.4-10.2) [facility] GFR >60 ml/min/1.73m2 (>59) [facility] GFR ( AMER) >60 ml/min/1.73m2 (>59) [facility] GFR INTERPRETATION [facility] --NORMAL KIDNEY FUNCTION OR MILD DISEASE - GFR >OR= 60CHRONIC KIDNEY DISEASE - GFR 15 - 59RENAL FAILURE - GFR <15 Est. GFR calculation based on the MDRDstudy equation, which assumes a steadystate for creatinine. Est. GFR should notbe used for medication dosing. ID Date Data Source [id number] 06/21/2020 08:56:44 PM EDT [facility] Name Value Range Interpretation Code Description Data Federica rce(s) Supporting Document(s) APPEARANCE (CLEAR) [facility] CHOLESTEROL @ 147 mg/dL (0-200) [facility] TRIGLYCERIDE @ 153 mg/dL (30-200) [facility] HDL CHOLESTEROL @ 40 mg/dL (>40) L [facility] PER NCEP ATP III GUIDELINES:RESULTS LOWE R THAN 40 MG/DL ARE SUGGESTIVEOF INCREASED RISK FOR CORONARY ARTERYDISEASE. RESULTS > OR = TO 60 MG/DL ARECONSIDERED A NEGATIVE RISK FACTOR. CHOL/HDL RATIO 3.7 RATIO [facility] INTERPRETATION OF CHOL-HDL RATIO CHD RISK FEMALE MALEVERY HIGH >8.3 >14.3HIGH 5.6- 8.3 6.7- 14.3AVERAGE 3.7- 5.6 4.0- 6.7BELOW AVERAGE 2.5- 3.7 2.7- 4.0PROTECTED <2.5 <2.7 DIRECT LDL @ 84 mg/dL (<130) [facility] clarissa French MARY ANN PER NCEP ATP III GUIDELINES: OPTIMAL < 100 NEAR OPTIMAL 100 - 129BORDERLINE HIGH 130 - 159 HIGH 160 - 189 VERY HIGH > 189 VLDL (CALC) 23 mg/dL (0-30) Lab [facility] ID Date Data Source [id number] 06/21/2020 08:56:44 PM EDT Lab [facility] Name Value Range Interpretation Code Description Data Federica rce(s) Supporting Document(s) TSH,ULTRASENSITIVE @ 1.190 mIU/L (0.360-4.170) Lab [facility] ID Date Data Source [id number] 01/23/2020 01:58:00 PM EST [facility] ([facility]) Name Value Range Interpretation Code Description Data Federica rce(s) Supporting Document(s) Thyrotropin [Units/volume] in Serum or Plasma by Detec tion limit <= 0.05 mIU/L 0.72 uIU/mL 0.36-3.74 [facility] ([facility] ) ID Date Data Source [id number] 01/23/2020 01:58:00 PM EST [facility] ([facility]) Name Value Range Interpretation Code Description Data Federica rce(s) Supporting Document(s) Cholesterol [Mass/volume] in Serum or Plasma 156 mg/dL 131-200 [facility] ([facility]) Cholesterol in HDL [Mass/volume] in Serum or Plasma 36 mg/dL 35-60 [facility] ([facility]) Cholesterol in LDL [Mass/volume] in Serum or Plasma by calcu lation 91 CALC 50-159 [facility] ([facility]) Triglyceride [Mass/volume] in Serum or Plasma 143 mg/dL 30-150 [facility] ([facility]) ID Date Data Source [id number] 01/23/2020 01:58:00 PM EST [facility] ([facility]) Name Value Range Interpretation Code Description Data Federica rce(s) Supporting Document(s) Glucose [Mass/volume] in Serum or Plasma 92 mg/dL 74-99 [facility] ([facility]) 100-125 mg/dL PRE-DIABETES/FASTING >126 mg/dL DIABETES/FASTING Urea nitrogen [Mass/volume] in Serum or Plasma 11 mg/dL 7-18 [facility] ([facility]) Creatinine 0.9 mg/dL 0.6-1.3 [facility] ([facility]) Chloride [Moles/volume] in Serum or Plasma 103 meq/L 98-107 [facility] ([facility]) Sodium [Moles/volume] in Serum or Plasma 139 meq/L 136-145 [facility] ([facility]) Potassium [Moles/volume] in Serum or Plasma 4.7 meq/L 3.5-5.1 [facility] ([facility]) Calcium [Mass/volume] in Serum or Plasma 9.2 mg/dL 8.5-10.1 [facility] ([facility]) Carbon dioxide, total [Moles/volume] in Serum or Plasma 27 meq/L 21 -32 [facility] ([facility]) Alkaline phosphatase isoenzyme [Units/volume] in Serum or Pl asma 90 mg/dL 46-116 [facility] ([facility]) Alanine aminotransferase [Enzymatic activity/volume] in Seru m or Plasma 23 U/L 12-78 [facility] ([facility]) Aspartate aminotransferase [Enzymatic activity/volume] in Serum or Plasma 19 U/L 15-37 [facility] ([facility] ) Total Bilirubin 0.6 mg/dL 0.2-1.0 [facility] ([facility]) A/G Ratio 1.05 CALC 1.00-1.90 [facility]) Albumin [Mass/volume] in Serum or Plasma 4.1 g/dL 3.4-5.0 [facility] ([facility]) Proteinase 3 Ab [Units/volume] in Serum 8.0 g/dL 6.4-8.2 [facility] ([facility]) Glomerular filtration rate/1.73 sq M pre dicted among non-blacks [Volume Rate/Area] in Serum or Plasma by Creatinine-based formula (MDRD) Laboratory test result [facility] ([facility] ) Glomerular filtration rate/1.73 sq M pre dicted among blacks [Volume Rate/Area] in Serum or Plasma by Creatinine-based formula (MDRD) Laboratory test result [facility] ([facility]) <content>CHRONIC KIDNEY DISEASE STAGING PER NKF</content>
<content></content>
<content>STAGE I & II GFR >= 60 NORMAL TO MILDLY DECREASED</content>
<content>STAGE III GFR 30-59 MODERATELY DECREASED</content>
<content>STAGE IV GFR 15-29 SEVERELY DECREASED</content>
<content>STAGE V GFR <15 VERY LITTLE GFR LEFT</content>
<content>ESRD GFR <15 ON UNIT TECHNICIAN</content>
<content></content> ID Date Data Source [id number] 01/23/2020 01:58:00 PM EST [facility] ([facility]) Name Value Range Interpretation Code Description Data [place] rce(s) Supporting Document(s) Leukocytes [#/volume] in Blood by Automated count 7.2 x10*3/UL 4.1-10 .9 [facility] ([facility]) Erythrocytes [#/volume] in Blood by Automated count 5.42 x10*6/UL 4.2 0-6.30 [facility] ([facility]) Hematocrit [Volume Fraction] of Blood by Automated count 48.2 % 3 7.0-51.0 [facility] ([facility]) Hemoglobin [Mass/volume] in Blood 16.6 g/dL 12.0-18.0 [facility] ([facility]) MCV 88.8 fL 80.0-97.0 [facility] ([facility]) MCH 30.6 pg 26.0-32.0 [facility] ([facility]) Erythrocyte distribution width [Ratio] by Automated count 13.6 % 11.6-13.7 [facility] ([facility]) Platelets [#/volume] in Blood by Automated count 309 x10*3/UL 140-440 [facility] ([facility]) MCHC 34.4 g/dL 31.0-38.0 [facility] ([facility]) MPV 8.8 FL 7.8-11.0 [facility] ([facility]) Lymph % 28.4 % 10.0-58.5 [facility] Mid % 6.5 % 1.7-9.3 [facility] Mid # 0.5 x10*3/UL 0.1-0.6 [facility] ([facility]) Lymph # 2.0 x10*3/UL 0.6-4.1 [facility] ([facility]) Neut % 65.1 % 37.0-92.0 [facility] Neut # 4.7 x10*3/UL 2.0-7.8 [facility] ([facility]) Procedure Social History Code Duration Value Status Description Data Source(s ) Alcohol intake 06/21/2020 12:00:00 AM EDT Yes completed [facility] Smoking 06/21/2020 12:00:00 AM EDT Never smoker completed Never s moker [facility] Vital Signs ID Date Data Source UNK Name Value Range Interpretation Code Description Data Source(s) Diastolic blood pressure 68 mm[Hg] 68 mm[Hg] [facility] ([facility]) Systolic blood pressure 128 mm[Hg] 128 mm[Hg] M [facility] ([facility]) Body height 67.75 [in_i] 67.75 [in_i] [facility] ([facility]) 5'7.75" Body weight 197.12 [lb_av] 197.12 [lb_av] [facility] T ([facility]) Oxygen saturation in Arterial blood by Pulse oximetry 97 % 97 % [facility] ([facility]) Air Body mass index (BMI) [Ratio] 30.2 kg/m2 30.2 k g/m2 [facility] ([facility]) Heart rate 69 /min 69 /min [facility] ([facility]) Systolic blood pressure 108 mm[Hg] 108 mm[Hg] [facility] Diastolic blood pressure 72 mm[Hg] 72 mm[Hg] [facility] Heart rate 84 /min 84 /min [facility] Respiratory rate 18 /min 18 /min [facility] Body height 172.7 cm 172.7 cm [facility] Body weight 91.173 kg 91.173 kg [facility] Body mass index (BMI) [Ratio] 30.56 kg/m2 30.56 kg/m2 [facility] Systolic blood pressure 104 mm[Hg] 104 mm[Hg] [facility] Diastolic blood pressure 68 mm[Hg] 68 mm[Hg] [facility] ([facility]) Body height 67.75 [in_i] 67.75 [in_i] [facility] ([facility]) 5'7.75" Body weight 206.00 [lb_av] 206.00 [lb_av] [facility] Body mass index (BMI) [Ratio] 31.6 kg/m2 31.6 k g/m2 [facility] ([facility]) Heart rate 92 /min 92 /min [facility] ([facility]) Body height 67.75 [in_i] 67.75 [in_i] [facility] ([facility]) 5'7.75" Diastolic blood pressure 70 mm[Hg] 70 mm[Hg] [facility] ([facility]) Body weight 204.00 [lb_av] 204.00 [lb_av] [facility] Oxygen saturation in Arterial blood by Pulse oximetry 96 % 96 % [facility] ([facility]) Air Body mass index (BMI) [Ratio] 31.2 kg/m2 31.2 k g/m2 [facility] ([facility]) Systolic blood pressure 102 mm[Hg] 102 mm[Hg] [facility] ([facility]) Patient Treatment Plan of Care Planned Activity Planned Date Details Description Data Source (s) Dexamethasone 0.5 MG Oral Tablet 06/05/2020 12:00:00 AM EDT [facility] drospirenone 3 MG / Ethinyl Estradiol 0.03 MG Oral Tab let 06/05/2020 12:00:00 AM EDT [facility] Fludrocortisone 0.1 MG Oral Tablet 06/05/2020 12:00:00 AM EDT [facility] montelukast 10 MG Oral Tablet [facility]
[2021-01-05] MEDS ORDERED: NS 1,000 ML IV ONE (07:05)
[2021-01-05] MEDS ORDERED: METOCLOPRAMIDE INJ 10MG/2ML VIAL (J2765 PER 1) IV ONE (07:05)
[2021-01-05 07:20] LABS: BASO # 0.1 10^3/uL (0.0-0.2); BASO % 0.8 % (0.0-1.0); EOS # 0.6 10^3/uL (0.0-0.5); EOS % 5.7 % (0.0-3.0); HEMATOCRIT 49.8 % (36.0-47.0); HEMOGLOBIN 16.7 g/dl (12.0-15.5); LYMPH # 2.8 10^3/uL (1.5-5.0); LYMPH % 28.5 % (24.0-44.0); MEAN CORPUSCULAR HEMOGLOBIN 30.4 pg (27.0-33.0); MEAN CORPUSCULAR HGB CONC 33.5 g/dl (32.0-36.5); MEAN CORPUSCULAR VOLUME 90.5 fl (80.0-96.0); MONO # 0.6 10^3/uL (0.0-0.8); MONO % 6.1 % (2.0-8.0); NEUTROPHILS # 5.7 10^3/uL (1.5-8.5); NEUTROPHILS % 58.6 % (36.0-66.0); PLATELET COUNT, AUTOMATED 306 10^3/uL (150-450); WHITE BLOOD COUNT 9.7 10^3/uL (4.0-10.0)
[2021-01-05 07:41] LABS: ALBUMIN 3.8 GM/DL (3.2-5.2); ALT/SGPT 24 U/L (12-78); BILIRUBIN,DIRECT 0.1 MG/DL (0.0-0.2); BILIRUBIN,TOTAL 0.5 MG/DL (0.2-1.0); LIPASE 144 U/L (73-393); TOTAL PROTEIN 8.3 GM/DL (6.4-8.2)
[2021-01-05 07:59] LABS: BLOOD UREA NITROGEN 8 MG/DL (7-18); CALCIUM LEVEL 9.3 MG/DL (8.5-10.1); CARBON DIOXIDE LEVEL 23 MEQ/L (21-32); CHLORIDE LEVEL 107 MEQ/L (98-107); CREATININE FOR GFR 1.04 MG/DL (0.55-1.30); GLOMERULAR FILTRATION RATE > 60.0 (>60); GLUCOSE, FASTING 105 MG/DL (70-100); POTASSIUM SERUM 4.3 MEQ/L (3.5-5.1); SODIUM LEVEL 141 MEQ/L (136-145)
[2021-01-05] MEDS ORDERED: cefTRIAXone SOD 1 GM in D5W MINI-BAG PLUS 50 ML IV ONE (08:50)
--- NOTE | 2021-01-05 09:27 | REPVR ---
PROCEDURE INFORMATION: Exam: US Retroperitoneal Limited, Kidneys Exam date and time: 01/05/2021 7:49 AM Age: 35 years old Clinical indication: Abdominal pain; Additional info: Right flank pain, polyuria, dysuria TECHNIQUE: Imaging protocol: Real-time ultrasound of the retroperitoneum with image documentation. Examination was focused on the kidneys. COMPARISON: Abdomen, limited US 05/10/2016 1:17 AM FINDINGS: Right kidney: Right kidney measures 10.3 cm in length. No renal mass, calculus, or hydronephrosis. Left kidney: Left kidney measures 10.5 cm in length. No renal mass, calculus, or hydronephrosis. Bladder: Nondistended bladder. IMPRESSION: Unremarkable sonographic evaluation of the kidneys and upper collecting systems. Electronically signed by: Van Campos On 01/05/2021 09:27:00 AM
[2021-01-05] MEDS ORDERED: CEPH500C PO (09:43)
[2021-01-05] MEDS ORDERED: PYRI1TAB5 PO (09:43)
[2021-01-05 10:15] VITALS: BP_SYST 128
[2021-01-05] MEDS ORDERED: ONDANSETRON 4 MG ORAL DISINTEGRATING TAB PO ONE (10:20)
== END 2021-01-05 10:16 | disposition home or self-care (01) ==
LOC: M ED 05:25
DX: N10 Acute pyelonephritis (principal); J45.909 Unspecified asthma, uncomplicated; E25.9 Adrenogenital disorder, unspecified; G80.9 Cerebral palsy, unspecified; Z88.5 Allergy status to narcotic agent; Z88.8 Allergy status to other drugs, medicaments and biological substances; Z79.899 Other long term (current) drug therapy
CPT/HCPCS: 76775; 80047; 80048; 80076; 81001; 83690; 84702; 85025; 87086; 96361; 96365; 96375; 99284; J0696; J1100; J2765

== ENCOUNTER 2021-07-15 04:50 | Emergency (ER) | payer MEDICARE, MEDICAID ==
[~2021-07-15] VITALS: Ht 172.7 cm; Wt 90.9 kg
[~2021-07-15 04:50] MED LIST changes: +CEPH500C PO; +DEXA5TA; +PYRI1TAB5 PO
[2021-07-15 04:51] VITALS: BP 137/79
[2021-07-15] MEDS ORDERED: HYDROCORTISONE 10 MG TAB PO ONE (07:05)
[2021-07-15] MEDS ORDERED: tiZANidine 4 MG TAB PO ONE (07:05)
[2021-07-15] MEDS ORDERED: TIZA4CAP PO (07:10)
== END 2021-07-15 07:54 | disposition home or self-care (01) ==
LOC: M ED 04:50
DX: S16.1XXA Strain of muscle, fascia and tendon at neck level, initial encounter (principal); Y92.9 Unspecified place or not applicable; Y93.9 Activity, unspecified; Y99.9 Unspecified external cause status; G80.9 Cerebral palsy, unspecified; Z88.6 Allergy status to analgesic agent

== ENCOUNTER → 2021-07-24 | Outpatient (CLI) | payer MEDICARE, MEDICAID | LOC: M SOG 13:54 | PROVIDERS: ATTEND Orthopaedic Surgery | DX: M54.2 Cervicalgia (principal) ==

== ENCOUNTER 2021-11-03 18:20 | Emergency (ER) | payer MEDICARE, MEDICAID ==
[~2021-11-03] VITALS: Ht 172.7 cm; Wt 89.4 kg
[2021-11-03] MEDS ORDERED: NS 1,000 ML IV ONE (19:35)
[2021-11-03] MEDS ORDERED: ACETAMINOPHEN 500 MG TAB PO ONE (19:35)
[2021-11-03] MEDS ORDERED: ONDANSETRON 4MG 2ML VIAL IV ONE (19:35)
[2021-11-03 19:42] LABS: BASO # 0.1 10^3/uL (0.0-0.2); BASO % 0.8 % (0.0-1.0); EOS # 0.1 10^3/uL (0.0-0.5); HEMATOCRIT 49.9 % (36.0-47.0); HEMOGLOBIN 17.3 g/dl (12.0-15.5); LYMPH # 0.7 10^3/uL (1.5-5.0); LYMPH % 8.8 % (24.0-44.0); MEAN CORPUSCULAR HEMOGLOBIN 30.8 pg (27.0-33.0); MEAN CORPUSCULAR HGB CONC 34.7 g/dl (32.0-36.5); MEAN CORPUSCULAR VOLUME 88.8 fl (80.0-96.0); MONO # 0.8 10^3/uL (0.0-0.8); MONO % 9.4 % (2.0-8.0); NEUTROPHILS # 6.7 10^3/uL (1.5-8.5); NEUTROPHILS % 79.6 % (36.0-66.0); PLATELET COUNT, AUTOMATED 261 10^3/uL (150-450); RED BLOOD COUNT 5.62 10^6/uL (4.00-5.40); WHITE BLOOD COUNT 8.4 10^3/uL (4.0-10.0)
[2021-11-03 20:07] LABS: RSV AMPLIFICATION NEGATIVE (NEGATIVE)
[2021-11-03] MEDS ORDERED: ISOVUE-370 76% 100ML VIAL As Ordered ONE (20:12)
[2021-11-03 20:14] LABS: ALBUMIN 4.3 GM/DL (3.2-5.2); BILIRUBIN,DIRECT 0.4 MG/DL (0.0-0.2); BILIRUBIN,TOTAL 1.4 MG/DL (0.2-1.0); TOTAL PROTEIN 8.7 GM/DL (6.4-8.2)
[2021-11-03 21:15] LABS: RBC, URINE 0-1 /hpf (0-3)
[2021-11-03 21:16] LABS: BACTERIA, URINE SMALL AMOUNT; HYALINE CAST, URINE 0-1 /lpf (0-1); MUCUS, URINE SMALL AMOUNT (NEGATIVE); SQUAMOUS EPITHELIAL CELL URINE SMALL AMOUNT /hpf (SMALL AMT)
[2021-11-03 22:42] VITALS: BP 107/64
== END 2021-11-03 22:54 | disposition home or self-care (01) ==
LOC: M ED 18:20
DX: U07.1 COVID-19 (principal); D25.9 Leiomyoma of uterus, unspecified; G43.909 Migraine, unspecified, not intractable, without status migrainosus; J45.909 Unspecified asthma, uncomplicated; G80.9 Cerebral palsy, unspecified; Q89.1 Congenital malformations of adrenal gland; Z88.5 Allergy status to narcotic agent; Z79.899 Other long term (current) drug therapy; Z79.51 Long term (current) use of inhaled steroids
CPT/HCPCS: 74177; 80047; 80076; 81000; 81015; 83690; 84702; 85025; 87086; 87631; 96361; 96374; 99284; J2405; Q9967